=== PATIENT | female | born 1950 | race Caucasian/White ===

== ENCOUNTER 2016-11-28 18:58 | Emergency (ER) | payer MEDICARE, OTHER ==
[~2016-11-28] VITALS: Ht 157.5 cm; Wt 62.0 kg
[~2016-11-28 18:58] MED LIST: ASPI81TA81 PO; CREON12 PO; DOCU1CAP39 PO; DRIS50002 PO; HYDR-3516 PO; LACTCHW3 CHEW; LEVA500T PO; LEVO.1 PO; LORA-392 PO; NOVO7030P2 SQ; PANT40TA3 PO; POLY17S PO
[2016-11-28 19:02] VITALS: BP 173/93; PULSE 82; RESP 14; TEMP 98.1; O2SAT 95
[2016-11-28] MEDS ORDERED: SODIUM CHLOR 0.9% 1000 ML INJ 1,000 ML IV SCH (19:25)
[2016-11-28] MEDS ORDERED: ONDANSETRON HCL 4 MG/2 ML VIAL IVP ONE (19:30)
[2016-11-28] MEDS ORDERED: HYDROmorphone HCL PF 1 MG/ML VIAL IVS ONE (19:30)
[2016-11-28] MEDS ORDERED: METF1000 PO (19:37)
[2016-11-28] MEDS ORDERED: TRAM50TA PO (19:37)
[2016-11-28] MEDS ORDERED: ALPR0.5T3 PO (19:37)
[2016-11-28] MEDS ORDERED: DIATRIZOATE MEGLUM/DIATRIZOATE SOD 9 ML CUP ONE (19:49)
--- NOTE | 2016-11-28 19:57 | PD ---
HPI Chief Complaint: Abdominal Pain Time Seen by Provider: 19:51 Travel History International Travel<30 days: No Contact w/Intl Traveler<30days: No Traveled to known affect area: No History of Present Illness HPI 66-year-old female that presents to the ED for evaluation of abdominal pain here for CT scan. Per patient she was told by Dr. Vasquez to come here for evaluation. Patient has a history of pancreatic cancer and had to have chemotherapy as well as Whipple procedure. Ever since having the Whipple procedure she's been having severe abdominal pain which her medications and symptoms be helping with her symptoms. Patient currently taking tramadol. Patient went to see her doctor today who recommended that she comes here to get evaluated. She comes here with paperwork stating that she is to get a CT with contrast as well as oral contrast. Per patient she does have blood work recently as well. She denies any recent radiation or chemotherapy. She denies any urinary symptoms. Per patient he feels like a pressure below the umbilicus. No radiation. Denies any new injury. No fevers chills or sweats. No nausea or vomiting. Allergy to Novocain. Denies any SOB or chest pain. Patient is 7 out of 10. States having diarrhea but this has been ongoing. PFSH Past Medical History Hx Anticoagulant Therapy: Yes (ASA) Asthma: No Blood Disorders: No Anxiety: Yes Depression: Yes Heart Rhythm Problems: No Cancer: Yes (pancreatic) Cardiac Catheterization: Yes Cardiovascular Problems: Yes (STENTS X 2) High Cholesterol: Yes Chemotherapy: Yes Chest Pain: Yes Congestive Heart Failure: No COPD: No Cerebrovascular Accident: No Diabetes: Yes Patient Takes Glucophage: Yes Diminished Hearing: No Endocrine: Yes (DIABETES) GERD: Yes Genitourinary: Yes Hepatitis: No Hiatal Hernia: No Hypertension: Yes Immune Disorder: No Musculoskeletal: No Neurologic: No Psychiatric: Yes Reproductive: No Respiratory: No Myocardial Infarction: Yes Radiation Therapy: No Sleep Apnea: No Thyroid Disease: Yes Ulcer: Yes : 1 Para: 1 Past Surgical History Abdominal Surgery: No AICD: No Cardiac Surgery: No Coronary Artery Bypass Graft: No Coronary Stent: Yes (X 2) Ear Surgery: No Endocrine Surgery: No Eye Surgery: No Gynecologic Surgery: Yes (HYSTERECTOMY-PARTIAL) Hysterectomy: Yes (PARTIAL) Joint Replacement: No Oral Surgery: No Pacemaker: No Thoracic Surgery: No Other Surgery: Yes (BILAT BREAST REDUCTION, TUMMY TUCK, RAVENSWOOD SURGERY-) Family History Family Myocardial Infarction: Yes Social History Alcohol Use: No Tobacco Use: Yes Substance Use: Yes (MARIJUANA ) Allergies-Medications (Allergen,Severity, Reaction): Coded Allergies: Novocain (Verified Allergy, Severe, 11/28/16) Reported Meds & Prescriptions Reported Meds & Active Scripts Active Polyethylene Glycol 3350 Powder (Polyethylene Glycol) 17 Gm Pow 17 Gm PO DAILY 14 Days Pantoprazole (Pantoprazole Sodium) 40 Mg Tab 40 Mg PO DAILY 30 Days Levaquin (Levofloxacin) 500 Mg Tab 500 Mg PO DAILY 3 Days Novolin 70-30 Inj (Insulin Human Isoph/Insulin Regular) 1,000 Unit/10 Ml Vial 3 Units SQ BID@ 30 Days Hydrocodone-Acetaminophen 5-325 mg Tab 1 Tab PO Q8HR PRN Dok (Docusate Sodium) 100 Mg Cap 100 Mg PO TID 30 Days Ativan (Lorazepam) 0.5 Mg Tab 0.5 Mg PO Q8H PRN Lactinex (Lactobacillus Acidophilus) 1 Chew 1 Tab CHEW DAILY Reported Tramadol (Tramadol HCl) 50 Mg Tab 50 Mg PO Q6H PRN Metformin (Metformin HCl) 1,000 Mg Tab 1,000 Mg PO BIDPC With meals Alprazolam 0.5 Mg Tab 0.5 Mg PO Q6H PRN Drisdol (Ergocalciferol) 50,000 Unit Cap 50,000 Units PO 2 X WEEKLY Creon (Amylase/Lipase/Protease) 12,000-38,000-60,000 Units Cap 5 Cap PO TIDPC Aspir-81 (Aspirin) 81 Mg Tabdr 81 Mg PO DAILY Synthroid (Levothyroxine Sodium) 100 Mcg Tab 100 Mcg PO DAILY Review of Systems Except as stated in HPI: all other systems reviewed are Neg Physical Exam Narrative GENERAL: SKIN: Warm and dry. HEAD: Atraumatic. Normocephalic. EYES: Pupils equal and round. No scleral icterus. No injection or drainage. ENT: No nasal bleeding or discharge. Mucous membranes pink and moist. Tongue is midline. No Uvula deviation. NECK: Trachea midline. No JVD. CARDIOVASCULAR: Regular rate and rhythm. No murmurs, S3, S4. RESPIRATORY: No accessory muscle use. Clear to auscultation. Breath sounds equal bilaterally. GASTROINTESTINAL: Abdomen soft, patient has tenderness to palpation on the lower abdomen., nondistended. Hepatic and splenic margins not palpable. MUSCULOSKELETAL: Extremities without clubbing, cyanosis, or edema. No obvious deformities. Full range of motion of the upper and lower extremities bilaterally. 2+ pulses bilaterally. NEUROLOGICAL: Awake and alert. No obvious cranial nerve deficits. Motor grossly within normal limits. Five out of 5 muscle strength in the arms and legs. Normal speech. PSYCHIATRIC: Appropriate mood and affect; insight and judgment normal. Data Data Last Documented VS Vital Signs Date Time Temp Pulse Resp B/P Pulse Ox O2 Delivery O2 Flow Rate FiO2 11/28/16 19:26 18 11/28/16 19:02 98.1 82 173/93 95 Room Air Orders Iv Access Insert/Monitor (11/28/16 19:25) Ecg Monitoring (11/28/16 19:25) Oximetry (11/28/16 19:25) Ondansetron Inj (Zofran Inj) (11/28/16 19:30) Sodium Chlor 0.9% 1000 Ml Inj (Ns 1000 M (11/28/16 19:25) Hydromorphone Pf Inj (Dilaudid Pf Inj) (11/28/16 19:30) Ct Abd/Pel W Iv Contrast(Rout) (11/28/16 19:31) Oral Contrast - Adult (11/28/16 19:43) Lorazepam Inj (Ativan Inj) (11/28/16 20:00) Diatrizoate Liq ( Gastrolina Liq) (11/28/16 19:49) MDM Medical Decision Making Medical Screen Exam Complete: Yes Emergency Medical Condition: Yes Medical Record Reviewed: Yes Differential Diagnosis Acute on chronic pain versus chronic pain versus obstruction versus metastasis versus gastroenteritis versus acute abdomen Narrative Course 66-year-old female that presents to the ED for evaluation of CT scan. Patient was properly examined and was found to have signs and symptoms consistent appears to be abdominal pain. Per note from Dr. Vasquez his concern for obstruction and wants CT with contrast to evaluate. Patient does have labwork yesterday. Creatinine was within normal limits. Patient able to tolerate CT. Patient was started on IV. Patient was given IV pain medications including Dilaudid, Zofran and Ativan to help with her anxiety. Unfortunately CT was not finished at the writing of this note. Case signed out to night provider after patient was moved to a different room pending results and treatment. Misael Mckeon Nov 28, 2016 19:56
[2016-11-28] MEDS ORDERED: LORazepam 2 MG/ML VIAL IV PUSH ONE (20:00)
[2016-11-28] MEDS ORDERED: IOHEXOL 350 MG/ML 10 ML VIAL (for RAD DIAG) IV ONE (21:01)
--- NOTE | 2016-11-28 21:20 | RADRPT ---
EXAM DATE/TIME: 11/28/2016 21:06 [facility] COMPARISON: No previous studies available for comparison. INDICATIONS : Abdominal pain. IV CONTRAST: 94 cc Omnipaque 350 (iohexol) IV ORAL CONTRAST: Prescribed oral contrast ingested. RADIATION DOSE: 5.53 CTDIvol (mGy) MEDICAL HISTORY : Gastroesophageal reflux disease. Hypertension. Carcinoma, pancreas. SURGICAL HISTORY : Whipple procedure 09/19/16 ENCOUNTER: Initial ACUITY: 1 day PAIN SCALE: 7/10 LOCATION: Bilateral upper quadrant TECHNIQUE: Volumetric scanning of the abdomen and pelvis was performed. Using automated exposure control and ad justment of the mA and/or kV according to patient size, radiation dose was kept as low as reasonably achievable to obtain optimal diagnostic quality images. FINDINGS: Lung bases are clear. Diffuse fatty liver. Spleen, adrenals, kidneys unremarkable. Pancreas is atroph ic. Multiple surgical clips present around the distal stomach. There is diffuse mild anasarca. Mild c onstipation. There is mild mural thickening of the left colon which may indicate a mild colitis. CONCLUSION: 1. Mild mural thickening of the left colon most characteristic of a mild colitis. There is also diffu se mild anasarca. Postsurgical changes noted in the right upper quadrant. There is pancreatic atrophi c change. Diffuse fatty liver. Wesley Armendariz MD on November 28, 2016 at 21:15 Board Certified Radiologist. This report was verified electronically.
[2016-11-28] MEDS ORDERED: HYDR-3533 PO (21:51)
--- NOTE | 2016-11-28 21:56 | PD ---
Physical Exam Date Seen by Provider: Nov 28, 2016 Time Seen by Provider: 19:00 Narrative I was asked to see this patient by Aden Mckeon PA-C, as we were waiting for CT results. Patient has a history of pancreatic cancer and has had some loose stools and lower abdominal pain over the last several days. Dr. Vasquez is her oncologist. CT scan shows mild colitis, but no other acute findings. Data Data Last Documented VS Vital Signs Date Time Temp Pulse Resp B/P Pulse Ox O2 Delivery O2 Flow Rate FiO2 11/28/16 19:26 18 11/28/16 19:02 98.1 82 173/93 95 Room Air Orders Iv Access Insert/Monitor (11/28/16 19:25) Ecg Monitoring (11/28/16 19:25) Oximetry (11/28/16 19:25) Ondansetron Inj (Zofran Inj) (11/28/16 19:30) Sodium Chlor 0.9% 1000 Ml Inj (Ns 1000 M (11/28/16 19:25) Hydromorphone Pf Inj (Dilaudid Pf Inj) (11/28/16 19:30) Ct Abd/Pel W Iv Contrast(Rout) (11/28/16 19:31) Oral Contrast - Adult (11/28/16 19:43) Lorazepam Inj (Ativan Inj) (11/28/16 20:00) Diatrizoate Liq ( Gastroview Liq) (11/28/16 19:49) Iohexol 350 Inj (Omnipaque 350 Inj) (11/28/16 21:01) MDM Medical Record Reviewed: Yes Supervised Visit with MITCHEL: Yes Differential Diagnosis Abdominal pain. Metastatic disease. Bowel obstruction. Colitis. Narrative Course CT scan results are reviewed. Call was placed to Dr. Vasquez per his request. Call returned by Dr. Soni the oncologist on-call at this time. The patient was discussed and felt to be stable to be discharged home. Patient is given a prescription for Lortab 5/325 one every 6 hours when necessary abdominal pain. #20. Patient is to rest and push fluids and increase diet as discussed. Patient should call Dr. Vasquez's office symptoms do not continue to improve or worsen. Patient cannot return to emergency Department with worsening symptoms as needed. The patient should follow-up with Dr. Vasquez next week. Diagnosis Primary Impression: Colitis Referrals: Isael Vasquez MD Patient Instructions: General Instructions Additional Instruction: Call returned by Dr. Soni the oncologist on-call at this time. The patient was discussed and felt to be stable to be discharged home. Patient is given a prescription for Lortab 5/325 one every 6 hours when necessary abdominal pain. #20. Patient is to rest and push fluids and increase diet as discussed. Patient should call Dr. Vasquez's office symptoms do not continue to improve or worsen. Patient cannot return to emergency Department with worsening symptoms as needed. The patient should follow-up with Dr. Vasquez next week. Med/Other Pt SpecificInfo: Prescription(s) given Scripts Hydrocodone-Acetaminophen (Lortab)5-325 Mg Tab1 Tab PO Q6H PRN (PAIN) #20 TAB Ref 0 Prov:Nilesh Joshi MD 11/28/16 Disposition: 01 DISCHARGE HOME Condition: Stable Remigio Mead Nov 28, 2016 21:56
[2016-11-28 23:12] VITALS: BP 175/76
== END 2016-11-28 23:14 | disposition home or self-care (01) ==
LOC: NETRI 18:58
DX: K52.9 Noninfective gastroenteritis and colitis, unspecified (principal); Z85.07 Personal history of malignant neoplasm of pancreas; Z72.0 Tobacco use
CPT/HCPCS: 74177; 96374; 96375; 99284; J1170; J2060; J2405; J7030; Q9963; Q9967; 99212; G0463

== ENCOUNTER → 2017-01-01 | Day surgery (SDC) | payer MEDICARE, OTHER ==
[~2017-01-01] MED LIST changes: +ALPR.25 PO; +ALPR0.5T3 PO; +BUPIVACAINE/EPINEPHRINE 0.5% PF 30 ML VIAL ONE; +DILA2TAB2 PO; +HYDR-3533 PO; +LACTATED RINGER'S 1000 ML INJ 1,000 ML ONE; +LIDOCAINE 1%/EPINEPHrine 1:100,000 SOLN 30 ML VIAL ONE; +METF1000 PO; +MIDAZOLAM HCL 2 MG/2 ML VIAL ONE; +MORP1TAB25 PO; +ONDANSETRON HCL 4 MG/2 ML VIAL IV PUSH ONE; +PROPOFOL 200 MG/20 ML AMP IV ONE; +SENN1TAB PO; +TRAM50TA PO
--- NOTE | 2017-01-01 16:34 | TN ---
cc: WESLEY CONTEH,KOBY Meadows MD DATE OF SURGERY 01/01/2017 PREOPERATIVE DIAGNOSIS 1. History of pancreatic cancer. 2. Breast mass 7 o'clock position left breast. POSTOPERATIVE DIAGNOSIS 1. History of pancreatic cancer. 2. Breast mass 7 o'clock position left breast. PROCEDURE Left breast lumpectomy 7 o'clock position. ANESTHESIA TIVA. SURGEON Dr. Rex Conteh INDICATIONS The patient is a pleasant 66-year-old female who had undergone treatment for pancreatic cancer by Dr. Vasquze. The patient noted a left breast mass. Plans were made for excision. PROCEDURE IN DETAIL The patient was taken to operating room placed on the OR table After prepping and draping with Betadine. After anesthesia, a time out is done. We make a curvilinear incision in the nipple-areolar complex in an old scar, dissect down out medially to this palpable mass which is about 1 centimeter in size. It is grasped with an Allis and retracted circumferentially. It has the appearance of appearing to be a fibroadenoma. Another thickened fibrous mass-like piece of tissue was removed from the inferior margin and marked as such. We did sergei the original specimen with a suture at the 12 o'clock position which was short and a long stitch placed laterally. It was passed off the field. We then irrigate. Hemostasis is assured. We then close the two layers with a 3-0 Vicryl and a 4-0 Vicryl and Steri-Strips. The patient tolerated the procedure well, had no immediate postop complications. Wesley Conteh MD JADELA/ /3:10 PM /4:23 PM
== END | disposition home or self-care (01) ==
LOC: ESDC 12:22
PROVIDERS: ATTEND Surgery
DX: N63 Unspecified lump in breast (principal); Z85.07 Personal history of malignant neoplasm of pancreas; E11.9 Type 2 diabetes mellitus without complications; Z79.4 Long term (current) use of insulin
CPT/HCPCS: 00400; 19120; 82948; 88307; J2250; J2405; J3010; J7120; 88305; 88311

== ENCOUNTER 2017-04-23 12:04 | Inpatient (IN) | payer MEDICARE, OTHER ==
[~2017-04-23] VITALS: Ht 157.5 cm; Wt 59.0 kg
[~2017-04-23 12:04] MED LIST changes: -ALPR.25 PO; -BUPIVACAINE/EPINEPHRINE 0.5% PF 30 ML VIAL ONE; -DILA2TAB2 PO; -LACTATED RINGER'S 1000 ML INJ 1,000 ML ONE; -LIDOCAINE 1%/EPINEPHrine 1:100,000 SOLN 30 ML VIAL ONE; -MIDAZOLAM HCL 2 MG/2 ML VIAL ONE; -MORP1TAB25 PO; -ONDANSETRON HCL 4 MG/2 ML VIAL IV PUSH ONE; -PROPOFOL 200 MG/20 ML AMP IV ONE; -SENN1TAB PO
[2017-04-23 12:06] VITALS: BP 183/95; PULSE 105; RESP 18; TEMP 98.5; O2SAT 97
--- NOTE | 2017-04-23 12:18 | PD ---
Physical Exam Time Seen by Provider: 12:16 Narrative 66yo F sent by Dr. Vasquez for pancreatic ca that has metastasized to the liver. Dr. Vasquez wants to be called. Patient c/o abd pain, nausea, diarrhea for past few days. Denies fever. Currently on chemo therapy. Patient seen in triage. VS reviewed. Patient awaiting bed placement. Data Data Last Documented VS Vital Signs Date Time Temp Pulse Resp B/P Pulse Ox O2 Delivery O2 Flow Rate FiO2 04/23/17 12:06 98.5 105 18 183/95 97 MDM Supervised Visit with MITCHEL: Rocio Aguilar Apr 23, 2017 12:18
[2017-04-23] MEDS ORDERED: SODIUM CHLOR 0.9% 1000 ML INJ 1,000 ML IV SCH (12:37)
[2017-04-23] MEDS ORDERED: SODIUM CHLOR 0.9% 1000 ML INJ 1,000 ML IV ONE (12:45)
[2017-04-23] MEDS ORDERED: SODIUM CHLORIDE 0.9% FLUSH 10 ML FLUSH IV FLUSH PRN ×2 (12:45→17:15)
[2017-04-23] MEDS ORDERED: HYDROmorphone HCL PF 1 MG/ML VIAL IVS ONE (12:45)
[2017-04-23] MEDS ORDERED: ONDANSETRON HCL 4 MG/2 ML VIAL IVP ONE (12:45)
[2017-04-23] MEDS ORDERED: FAMOTIDINE 20 MG/2 ML VIAL IV PUSH ONE (12:45)
[2017-04-23 12:50] VITALS: BP 185/93; PULSE 90; RESP 15; TEMP 99; O2SAT 95
--- NOTE | 2017-04-23 13:26 | PD ---
HPI Chief Complaint: Abdominal Pain Time Seen by Provider: 12:30 Travel History International Travel<30 days: No Contact w/Intl Traveler<30days: No Traveled to known affect area: No History of Present Illness HPI Patient is an unfortunate 66-year-old female who has locally advanced pancreatic cancer. Patient had undergone Whipple's procedure in September 11, 2016, she was found to have residual cancer with a 2.5 cm pancreatic poorly differentiated adenocarcinoma and 3 positive lymph nodes. Patient reports that her cancer had metastasized to her liver, reports that she is currently receiving chemotherapy treatment. Patient did receive chemotherapy treatments a few weeks ago, she is due for chemotherapy tomorrow. Patient reports that she has been having severe pain to her abdomen, that her pain is at baseline, is unchanged from her normal abdominal pain. That her pain medications are not helping her symptoms at this time. Patient is currently being treated by Dr. Orly Vasquez, her oncologist. Patient reports that for the past few days, she has been feeling nauseous, reports that she has not been able to keep any foods or fluids down. Patient reports that she has also been having diarrhea. Patient reports that she feels dehydrated and weak. Patient did call Dr. Vasquez today, was told to come to emergency room for evaluation. I did check to Dr. Vasquez upon arrival to the emergency room, Dr. Vasquez request that patient have lab work drawn including CT of the abdomen and pelvis IV contrast. Patient does have metastatic disease, there is considerations for hospise versus palliative care. Dr. Vasquez will see patient today in hospital after all the studies have been resulted PFS Past Medical History Hx Anticoagulant Therapy: Yes (ASA) Asthma: No Blood Disorders: No Anxiety: Yes Depression: Yes Heart Rhythm Problems: No Cancer: Yes (pancreatic) Cardiac Catheterization: Yes Cardiovascular Problems: Yes (STENTS X 2) High Cholesterol: Yes Chemotherapy: Yes Chest Pain: Yes Congestive Heart Failure: No COPD: No Cerebrovascular Accident: No Diabetes: Yes Diminished Hearing: No Endocrine: Yes (DIABETES) GERD: Yes Genitourinary: Yes Hepatitis: No Hiatal Hernia: No Hypertension: Yes Immune Disorder: No Musculoskeletal: No Neurologic: No Psychiatric: Yes Reproductive: No Respiratory: No Myocardial Infarction: Yes Radiation Therapy: No Sleep Apnea: No Thyroid Disease: Yes Ulcer: Yes : 1 Para: 1 Past Surgical History Abdominal Surgery: No AICD: No Cardiac Surgery: No Coronary Artery Bypass Graft: No Coronary Stent: Yes (X 2) Ear Surgery: No Endocrine Surgery: No Eye Surgery: No Gynecologic Surgery: Yes (HYSTERECTOMY-PARTIAL) Hysterectomy: Yes (PARTIAL) Joint Replacement: No Oral Surgery: No Pacemaker: No Thoracic Surgery: No Other Surgery: Yes (BILAT BREAST REDUCTION, TUMMY TUCK, WHIPPLE SURGERY-) Social History Alcohol Use: No Tobacco Use: Yes Substance Use: Yes (MARIJUANA ) Allergies-Medications (Allergen,Severity, Reaction): Coded Allergies: Novocain (Verified Allergy, Severe, 04/23/17) Reported Meds & Prescriptions Reported Meds & Active Scripts Active Novolin 70-30 Inj (Insulin Human Isoph/Insulin Regular) 1,000 Unit/10 Ml Vial 3 Units SQ BID@ 30 Days Hydrocodone-Acetaminophen 5-325 mg Tab 1 Tab PO Q8HR PRN Dok (Docusate Sodium) 100 Mg Cap 100 Mg PO TID 30 Days Reported Morphine ER (Morphine Sulfate) 30 Mg Tab 30 Mg PO Q8H Creon (Amylase/Lipase/Protease) 12,000-38,000-60,000 Units Cap 5 Cap PO TIDPC Aspir-81 (Aspirin) 81 Mg Tabdr 81 Mg PO DAILY Synthroid (Levothyroxine Sodium) 100 Mcg Tab 100 Mcg PO DAILY Review of Systems General / Constitutional: No: Fever Eyes: No: Visual changes HENT: No: Headaches Cardiovascular: No: Chest Pain or Discomfort Respiratory: No: Shortness of Breath Gastrointestinal: Positive: Nausea, Diarrhea, Abdominal Pain Genitourinary: No: Dysuria Musculoskeletal: No: Pain Skin: No Rash Neurologic: No: Weakness Psychiatric: No: Depression Endocrine: No: Polydipsia Hematologic/Lymphatic: No: Easy Bruising Physical Exam Narrative GENERAL: Moderate distress SKIN: Focused skin assessment warm/dry. HEAD: Atraumatic. Normocephalic. EYES: Pupils equal and round. No scleral icterus. No injection or drainage. ENT: No nasal bleeding or discharge. Mucous membranes pink and moist. NECK: Trachea midline. No JVD. CARDIOVASCULAR: Regular rate and rhythm. No murmur appreciated. RESPIRATORY: No accessory muscle use. Clear to auscultation. Breath sounds equal bilaterally. GASTROINTESTINAL: Abdomen soft, patient with increased tenderness in the upper abdomen MUSCULOSKELETAL: No obvious deformities. No clubbing. No cyanosis. No edema. NEUROLOGICAL: Awake and alert. No obvious cranial nerve deficits. Motor grossly within normal limits. Normal speech. PSYCHIATRIC: Appropriate mood and affect; insight and judgment normal. Data Data Last Documented VS Vital Signs Date Time Temp Pulse Resp B/P Pulse Ox O2 Delivery O2 Flow Rate FiO2 04/23/17 13:43 90 15 162/96 98 Room Air 04/23/17 12:50 99.0 Orders Complete Blood Count With Diff (04/23/17 12:37) Comprehensive Metabolic Panel (04/23/17 12:37) Prothrombin Time / Inr (Pt) (04/23/17 12:37) Act Partial Throm Time (Ptt) (04/23/17 12:37) Urinalysis - C+S If Indicated (04/23/17 12:37) Iv Access Insert/Monitor (04/23/17 12:37) Ecg Monitoring (04/23/17 12:37) Oximetry (04/23/17 12:37) Ondansetron Inj (Zofran Inj) (04/23/17 12:45) Sodium Chlor 0.9% 1000 Ml Inj (Ns 1000 M (04/23/17 12:37) Sodium Chloride 0.9% Flush (Ns Flush) (04/23/17 12:45) Famotidine Inj (Pepcid Inj) (04/23/17 12:45) Hydromorphone Pf Inj (Dilaudid Pf Inj) (04/23/17 12:45) Sodium Chlor 0.9% 1000 Ml Inj (Ns 1000 M (04/23/17 12:45) Ct Abd/Pel W Iv Contrast(Rout) (04/23/17 12:42) Consult Medical Oncology (04/23/17 ) (Hub Use Only)Inp Phy Cons/Ref (04/23/17 ) Iohexol 350 Inj (Omnipaque 350 Inj) (04/23/17 15:15) Admit Order (Ed Use Only) (04/23/17 16:23) Labs Laboratory Tests Test 04/23/17 04/23/17 13:00 14:45 White Blood Count 10.6 TH/MM3 Red Blood Count 3.81 MIL/MM3 Hemoglobin 10.2 GM/DL Hematocrit 31.6 % Mean Corpuscular Volume 83.1 FL Mean Corpuscular Hemoglobin 26.9 PG Mean Corpuscular Hemoglobin 32.4 % Concent Red Cell Distribution Width 15.2 % Platelet Count 434 TH/MM3 Mean Platelet Volume 8.0 FL Neutrophils (%) (Auto) 84.3 % Lymphocytes (%) (Auto) 11.8 % Monocytes (%) (Auto) 3.0 % Eosinophils (%) (Auto) 0.1 % Basophils (%) (Auto) 0.8 % Neutrophils # (Auto) 9.0 TH/MM3 Lymphocytes # (Auto) 1.3 TH/MM3 Monocytes # (Auto) 0.3 TH/MM3 Eosinophils # (Auto) 0.0 TH/MM3 Basophils # (Auto) 0.1 TH/MM3 CBC Comment DIFF FINAL Differential Comment Prothrombin Time 12.1 SEC Prothromb Time International 1.1 RATIO Ratio Activated Partial 26.6 SEC Thromboplast Time Sodium Level 129 MEQ/L Potassium Level 3.9 MEQ/L Chloride Level 91 MEQ/L Carbon Dioxide Level 27.9 MEQ/L Anion Gap 10 MEQ/L Blood Urea Nitrogen 6 MG/DL Creatinine 0.51 MG/DL Estimat Glomerular Filtration 120 ML/MIN Rate Random Glucose 302 MG/DL Calcium Level 8.5 MG/DL Total Bilirubin 0.8 MG/DL Aspartate Amino Transf 61 U/L (AST/SGOT) Alanine Aminotransferase 49 U/L (ALT/SGPT) Alkaline Phosphatase 137 U/L Total Protein 6.7 GM/DL Albumin 2.8 GM/DL Urine Color LIGHT-YELLOW Urine Turbidity CLEAR Urine pH 6.0 Urine Specific [place] 1.006 Urine Protein NEG mg/dL Urine Glucose (UA) 1000 mg/dL Urine Ketones 40 mg/dL Urine Occult Blood NEG Urine Nitrite NEG Urine Bilirubin NEG Urine Urobilinogen LESS THAN 2.0 MG/DL Urine Leukocyte Esterase NEG Urine RBC LESS THAN 1 /hpf Urine WBC 1 /hpf Urine Squamous Epithelial 4 /hpf Cells Urine Mucus FEW /lpf Microscopic Urinalysis Comment CULT NOT INDICATED MDM Medical Decision Making Medical Screen Exam Complete: Yes Emergency Medical Condition: Yes Interpretation(s) Vital Signs Date Time Temp Pulse Resp B/P Pulse Ox O2 Delivery O2 Flow Rate FiO2 04/23/17 12:06 98.5 105 18 183/95 97 Differential Diagnosis Chronic pain from pancreatic cancer, electrolyte abnormality, gastroenteritis Narrative Course Patient is a 66-year-old female who presents to emergency room for evaluation of abdominal pain with nausea and diarrhea. Patient does have history of pancreatic cancer, reports that her cancer has metastasized to the liver. Reports that her pain is at baseline but reports intractable nausea and diarrhea. Reports that she feels dehydrated, was told to come to the emergency room for evaluation as per Dr. Vasquez. I did review case with Dr. Vasquez, Dr. Vasquez request CT of the abdomen and pelvis with IV contrast, there is consideration for hospice versus palliative care, patient is well-known to Dr. Vasquez, after studies, Dr. Vasquez talk to patient about her options. Dr. Vasquez request that patient be managed to the hospital under medicine service for pain treatment as well as for IV hydration. Laboratory Tests Test 04/23/17 04/23/17 13:00 14:45 White Blood Count 10.6 TH/MM3 (4.0-11.0) Red Blood Count 3.81 MIL/MM3 (4.00-5.30) Hemoglobin 10.2 GM/DL (11.6-15.3) Hematocrit 31.6 % (35.0-46.0) Mean Corpuscular Volume 83.1 FL (80.0-100.0) Mean Corpuscular Hemoglobin 26.9 PG (27.0-34.0) Mean Corpuscular Hemoglobin 32.4 % Concent (32.0-36.0) Red Cell Distribution Width 15.2 % (11.6-17.2) Platelet Count 434 TH/MM3 (150-450) Mean Platelet Volume 8.0 FL (7.0-11.0) Neutrophils (%) (Auto) 84.3 % (16.0-70.0) Lymphocytes (%) (Auto) 11.8 % (9.0-44.0) Monocytes (%) (Auto) 3.0 % (0.0-8.0) Eosinophils (%) (Auto) 0.1 % (0.0-4.0) Basophils (%) (Auto) 0.8 % (0.0-2.0) Neutrophils # (Auto) 9.0 TH/MM3 (1.8-7.7) Lymphocytes # (Auto) 1.3 TH/MM3 (1.0-4.8) Monocytes # (Auto) 0.3 TH/MM3 (0-0.9) Eosinophils # (Auto) 0.0 TH/MM3 (0-0.4) Basophils # (Auto) 0.1 TH/MM3 (0-0.2) CBC Comment DIFF FINAL Differential Comment Prothrombin Time 12.1 SEC (9.8-11.6) Prothromb Time International 1.1 RATIO Ratio Activated Partial 26.6 SEC Thromboplast Time (24.3-30.1) Sodium Level 129 MEQ/L (136-145) Potassium Level 3.9 MEQ/L (3.5-5.1) Chloride Level 91 MEQ/L (98-107) Carbon Dioxide Level 27.9 MEQ/L (21.0-32.0) Anion Gap 10 MEQ/L (5-15) Blood Urea Nitrogen 6 MG/DL (7-18) Creatinine 0.51 MG/DL (0.50-1.00) Estimat Glomerular Filtration 120 ML/MIN Rate (>89) Random Glucose 302 MG/DL (74-106) Calcium Level 8.5 MG/DL (8.5-10.1) Total Bilirubin 0.8 MG/DL (0.2-1.0) Aspartate Amino Transf 61 U/L (15-37) (AST/SGOT) Alanine Aminotransferase 49 U/L (10-53) (ALT/SGPT) Alkaline Phosphatase 137 U/L (45-117) Total Protein 6.7 GM/DL (6.4-8.2) Albumin 2.8 GM/DL (3.4-5.0) Urine Color LIGHT-YELLOW (YELLW/STRAW) Urine Turbidity CLEAR (CLEAR) Urine pH 6.0 (5.0-8.5) Urine Specific [place] 1.006 (1.002-1.035) Urine Protein NEG mg/dL (NEG-TRACE) Urine Glucose (UA) 1000 mg/dL (NEG) Urine Ketones 40 mg/dL (NEG) Urine Occult Blood NEG (NEG) Urine Nitrite NEG (NEG) Urine Bilirubin NEG (NEG) Urine Urobilinogen LESS THAN 2.0 MG/DL (LESS THAN 2.0) Urine Leukocyte Esterase NEG (NEG) Urine RBC LESS THAN 1 /hpf (0-3) Urine WBC 1 /hpf (0-5) Urine Squamous Epithelial 4 /hpf (0-5) Cells Urine Mucus FEW /lpf (OCC) Microscopic Urinalysis Comment CULT NOT INDICATED CT of the pelvis shows moderate amount of ascites which is new, diffuse apparent colonic wall thickening, a new 2.5 x 1.5 centimeter lesion in the left lobe the liver Plan to admit patient to medicine service as patient will be seen by her oncologist, patient will require pain control this time. Case reviewed with FP resident who accepts pt to service Diagnosis Primary Impression: Hyponatremia Additional Impressions: Abdominal pain Pancreatic cancer Admitting Information Admitting Physician Requests: Admit Dunia Harding DO Apr 23, 2017 13:26
[2017-04-23 13:32] LABS: BASOPHIL # 0.1 TH/MM3 (0-0.2); BASOPHIL % 0.8 % (0.0-2.0); EOSINOPHIL % 0.1 % (0.0-4.0); HEMATOCRIT 31.6 % (35.0-46.0); HEMO FLAGS DIFF FINAL; LYMPH % 11.8 % (9.0-44.0); LYMPHOCYTE # 1.3 TH/MM3 (1.0-4.8); MEAN CELL VOLUME 83.1 FL (80.0-100.0); MEAN CORPUSCULAR HEMOGLOBIN 26.9 PG (27.0-34.0); MEAN CORPUSCULAR HGB CONC 32.4 % (32.0-36.0); NEUT % 84.3 % (16.0-70.0); PLATELET COUNT 434 TH/MM3 (150-450); RED BLOOD COUNT 3.81 MIL/MM3 (4.00-5.30); RED CELL DISTRIBUTION WIDTH 15.2 % (11.6-17.2); WHITE BLOOD COUNT 10.6 TH/MM3 (4.0-11.0)
[2017-04-23 13:41] LABS: APTT (PATIENT) 26.6 SEC (24.3-30.1); INTERNATIONAL NORMALIZED RATIO 1.1 RATIO; PROTHROMBIN TIME - PATIENT 12.1 SEC (9.8-11.6)
[2017-04-23] MEDS ORDERED: MORP1TAB25 PO (13:41)
[2017-04-23 13:43] VITALS: BP 162/96; PULSE 90; RESP 15; O2SAT 98
[2017-04-23 13:51] LABS: ALKALINE PHOSPHATASE 137 U/L (45-117); TOTAL BILIRUBIN ADULT 0.8 MG/DL (0.2-1.0)
[2017-04-23 13:52] LABS: ALT (GPT) 49 U/L (10-53); ANION GAP 10 MEQ/L (5-15); AST (GOT) 61 U/L (15-37); BICARBONATE 27.9 MEQ/L (21.0-32.0); BLOOD UREA NITROGEN 6 MG/DL (7-18); CHLORIDE 91 MEQ/L (98-107); GLOMERULAR FILTRATION RATE 120 ML/MIN (>89); POTASSIUM 3.9 MEQ/L (3.5-5.1); SODIUM (NA) 129 MEQ/L (136-145)
[2017-04-23] MEDS ORDERED: IOHEXOL 350 MG/ML 10 ML VIAL (for RAD DIAG) IV ONE (15:15)
[2017-04-23 15:26] LABS: BLOOD, URINE NEG (NEG); COMMENT (UR) CULT NOT INDICATED; CULTURE IF INDICATED CULT NOT INDICATED; GLUCOSE,URINE 1000 mg/dL (NEG); KETONE, URINE 40 mg/dL (NEG); MUCUS URINE FEW /lpf (OCC); NITRITE,URINE NEG (NEG); SQUAMOUS EPITHELIAL CELL URINE 4 /hpf (0-5); URINE COLOR LIGHT-YELLOW (YELLW/STRAW)
--- NOTE | 2017-04-23 16:11 | RADRPT ---
EXAM DATE/TIME: 04/23/2017 15:10 [facility] COMPARISON: CT ABDOMEN & PELVIS W CONTRAST, November 28, 2016, 21:06. INDICATIONS : Patient complains of abdominal and back pain, history of pancreatic cancer. IV CONTRAST: 95 cc Omnipaque 350 (iohexol) IV ORAL CONTRAST: No oral contrast ingested. RADIATION DOSE: 9.96 CTDIvol (mGy) MEDICAL HISTORY : Hypertension. Cardiovascular disease Diabetes mellitus type 1.pancreatic cancer SURGICAL HISTORY : Hysterectomy. ENCOUNTER: Initial ACUITY: 1 day PAIN SCALE: 5/10 LOCATION: Bilateral upper quadrant TECHNIQUE: Volumetric scanning of the abdomen and pelvis was performed. Using automated exposure control and ad justment of the mA and/or kV according to patient size, radiation dose was kept as low as reasonably achievable to obtain optimal diagnostic quality images. FINDINGS: LOWER LUNGS: The visualized lower lungs are clear. LIVER: 2.5 x 1.5 cm lobulated hypodensity in the left lobe of the liver on image #26. Liver otherwise within normal limits. Status post cholecystectomy. Mild pneumobilia. SPLEEN: Normal size without lesion. PANCREAS: Diffusely atrophic. KIDNEYS: Normal in size and shape. There is no mass, stone or hydronephrosis. ADRENAL GLANDS: Within normal limits. VASCULAR: There is no aortic aneurysm. BOWEL/MESENTERY: Diffuse apparent colonic wall thickening likely related to diffuse nondistention. No bowel dilatation . No free air. Moderate amount of ascites in the upper abdomen. ABDOMINAL WALL: Within normal limits. RETROPERITONEUM: There is no lymphadenopathy. BLADDER: No wall thickening or mass. REPRODUCTIVE: Within normal limits. INGUINAL: There is no lymphadenopathy or hernia. MUSCULOSKELETAL: Degenerative findings lumbar spine. CONCLUSION: Moderate amount of ascites, new. Superficial soft tissue edema also noted. Diffuse apparent colonic wall thickening, likely related to incomplete distention of the colon as are as that are air-filled show no wall thickening. New 2.5 x 1.5 cm lesion in the left lobe of the liver, indeterminate. This finding is likely accessib le to CT-guided percutaneous needle biopsy. Akshat Mcdermott MD on April 23, 2017 at 15:54 Board Certified Radiologist. This report was verified electronically.
--- NOTE | 2017-04-23 16:32 | HHI.HP ---
[facility] Service Family Medicine Primary Care Physician Paul Reddy MD Admission Diagnosis Intractable abdominal pain Diagnoses: International Travel<30 Days: No Contact w/Intl Traveler<30days: No Known Affected Area: No History of Present Illness 66-year-old female with a history of locally advanced pancreatic cancer found February 2016. Known to Dr. Vasquez. From information obtained from Dr. Vasquez note in January 2017, patient has clinical T3 N1 M0. She received chemotherapy and the CA-19-9 fell to 107 and she had a normal PET scan. She had a Whipple procedure 08/2016 and was found to have residual cancer with a 2.5 cm pancreatic poorly differentiated adenocarcinoma and 3 positive lymph nodes. Her plan was to be treated with radiation therapy with oral xeloda following the surgery. However, she never recovered well enough to do this. She had problems with diabetes and needed to follow with an form stripper. The patient came in today because "she could not take the pain anymore." She says the last few days have been "hell." The pain is constant 10 out of 10 in the center of her belly, radiates to her back up and down. She is nauseous but is not vomiting. She has no appetite. She has both diarrhea and constipation. At the time of my interview, she received 1 mg of Dilaudid and her pain is relatively gone. The ED spoke with Dr. Vasquez and he plans to see the patient today. Review of Systems Constitutional: COMPLAINS OF: Weight loss (100 lb since last year), Chills, Change in appetite, DENIES: Fever Eyes: DENIES: Blurred vision, Diplopia Ears, nose, mouth, throat: DENIES: Vertigo, Running Nose Respiratory: DENIES: Cough, Shortness of breath Cardiovascular: DENIES: Chest pain, Palpitations Gastrointestinal: COMPLAINS OF: Abdominal pain, Constipation, Diarrhea, Nausea , DENIES: Vomiting Neurologic: COMPLAINS OF: Abnormal gait, DENIES: Headache Psychiatric: COMPLAINS OF: Anxiety, Confusion, Depression Past Family Social History Past Medical History [place] 2008 Hyperlipidemia Pancreatic cancer Past Surgical History Whipple procedure 2016 Bilateral breast reductions Bilateral carpal tunnel Bladder lift 3 Marbella locke Reported Medications Reported Meds & Active Scripts Active Humolog SSI Lantus 6 units in the morning. Hydrocodone-Acetaminophen 5-325 mg Tab 2 Tab PO q4-6 hr prn Dok (Docusate Sodium) 100 Mg Cap 100 Mg PO TID 30 Days Reported Morphine ER (Morphine Sulfate) 30 Mg Tab 30 Mg PO Q8H Creon (Amylase/Lipase/Protease) 12,000-38,000-60,000 Units Cap 5 Cap PO TIDPC Aspir-81 (Aspirin) 81 Mg Tabdr 81 Mg PO DAILY Synthroid (Levothyroxine Sodium) 100 Mcg Tab 100 Mcg PO DAILY Allergies: Coded Allergies: Novocain (Verified Allergy, Severe, 04/23/17) Active Ordered Medications Active Medications Alprazolam (Xanax) 0.25 mg TID PRN PO; Start 04/23/17 at 17:30; Status UNV Bisacodyl (Dulcolax Supp) 10 mg DAILY PRN RECTAL; Start 04/23/17 at 17:15; Status UNV Famotidine (Pepcid Inj) 20 mg ONCE ONCE IV PUSH Last administered on 04/23/17 12:54; Admin Dose 20 MG; Start 04/23/17 at 12:45; Stop 04/23/17 at 12:46; Status DC Heparin Sodium (Porcine) (Heparin Inj) 5,000 units Q12H SQ; Start 04/23/17 at 17: 15; Status UNV Hydromorphone HCl (Dilaudid Pf Inj) 0.5 mg Q3H PRN IV; Start 04/23/17 at 17:30; Status UNV Hydromorphone HCl (Dilaudid Pf Inj) 1 mg Q3H PRN IV; Start 04/23/17 at 17:30; Status UNV Hydromorphone HCl (Dilaudid Pf Inj) 1 mg Q3H PRN IV; Start 04/23/17 at 17:30; Status UNV Hydromorphone HCl 1 mg 1 mg ONCE ONCE IVS Last administered on 04/23/17 12:54; Admin Dose 1 MG; Start 04/23/17 at 12:45; Stop 04/23/17 at 12:46; Status DC Iohexol 95 ml 95 ml STK-MED ONCE IV Last administered on 04/23/17 15:15; Admin Dose 95 ML; Start 04/23/17 at 15:15; Stop 04/23/17 at 15:16; Status DC Lactulose (Lactulose Liq) 30 ml DAILY PRN PO; Start 04/23/17 at 17:15; Status UNV Magnesium Hydroxide (Milk Of Magnesia Liq) 30 ml Q12H PRN PO; Start 04/23/17 at 17:15; Status UNV Naloxone HCl (Narcan Inj) 0.4 mg UNSCH PRN IV; Start 04/23/17 at 17:15; Status UNV Naloxone HCl (Narcan Inj) 0.4 mg UNSCH PRN IV; Start 04/23/17 at 17:30; Status UNV Ondansetron HCl 4 mg 4 mg ONCE ONCE IVP Last administered on 04/23/17 12:54; Admin Dose 4 MG; Start 04/23/17 at 12:45; Stop 04/23/17 at 12:46; Status DC Senna/Docusate Sodium (Chayo-Colace) 1 tab BID PO; Start 04/23/17 at 21:00; Status UNV Sennosides (Senokot) 17.2 mg Q12H PRN PO; Start 04/23/17 at 17:15; Status UNV Sodium Chloride (NS 1000 ml Inj) 1,000 ml @ 100 mls/hr Q10H IV; Start 04/23/17 at 17:12; Status UNV Sodium Chloride (NS 1000 ml Inj) 1,000 ml @ 999 mls/hr BOLUS ONCE IV Last administered on 04/23/17 12:53; Admin Dose 999 MLS/HR; Start 04/23/17 at 12:45; Stop 04/23/17 at 13:45; Status DC Sodium Chloride (NS 1000 ml Inj) 1,000 ml @ 1,000 mls/hr Q1H IV Last administered on 04/23/17 12:53; Admin Dose 1,000 MLS/HR; Start 04/23/17 at 12:37 ; Stop 04/23/17 at 13:36; Status DC Sodium Chloride (NS Flush) 2 ml BID IV FLUSH; Start 04/23/17 at 21:00; Status UNV Sodium Chloride (NS Flush) 2 ml UNSCH PRN IV FLUSH; Start 04/23/17 at 12:45 Sodium Chloride (NS Flush) 2 ml UNSCH PRN IV FLUSH; Start 04/23/17 at 17:15; Status UNV Temazepam (Restoril) 7.5 mg HS PRN PO; Start 04/23/17 at 17:15; Status UNV Family History Mother: cancer unknown type Father: cad. no cancer Sister with cancer of unknown type Brother with pancreatic and stomach cancer Aunt with meningioma Social History Tobacco abuse on and off alcohol: none Physical Exam Vital Signs Vital Signs Date Time Temp Pulse Resp B/P Pulse Ox O2 Delivery O2 Flow Rate FiO2 04/23/17 13:43 90 15 162/96 98 Room Air 04/23/17 13:42 14 04/23/17 12:50 15 04/23/17 12:50 99.0 90 15 185/93 95 Room Air 04/23/17 12:06 98.5 105 18 183/95 97 Physical Exam GENERAL: This is a well-nourished and pleasant female. No acute distress. SKIN: Cool and dry. Port right upper chest without erythema. HEAD: Atraumatic. Normocephalic. No temporal or scalp tenderness. EYES: Pupils equal round and reactive. Extraocular motions intact. No scleral icterus. No injection or drainage. ENT: Nose without bleeding, purulent drainage or septal hematoma. Throat without erythema, tonsillar hypertrophy or exudate. Uvula midline. Airway patent. NECK: Trachea midline. No JVD or lymphadenopathy. Supple, nontender, no meningeal signs. CARDIOVASCULAR: Regular rate and rhythm. 2/6 systolic ejection murmur right sternal border RESPIRATORY: Clear to auscultation. Breath sounds equal bilaterally. No wheezes , rales, or rhonchi. GASTROINTESTINAL: Abdomen soft, mildly tender to palpation diffusely, nondistended. No guarding or rebound. MUSCULOSKELETAL: Extremities without clubbing, cyanosis, or edema. No joint tenderness, effusion, or edema noted. No calf tenderness. Negative Homans sign bilaterally. NEUROLOGICAL: Awake and alert. Cranial nerves II through XII intact. Motor and sensory grossly within normal limits. Five out of 5 muscle strength in all muscle groups. Normal speech. Laboratory Laboratory Tests Test 04/23/17 04/23/17 13:00 14:45 White Blood Count 10.6 Red Blood Count 3.81 Hemoglobin 10.2 Hematocrit 31.6 Mean Corpuscular Volume 83.1 Mean Corpuscular Hemoglobin 26.9 Mean Corpuscular Hemoglobin 32.4 Concent Red Cell Distribution Width 15.2 Platelet Count 434 Mean Platelet Volume 8.0 Neutrophils (%) (Auto) 84.3 Lymphocytes (%) (Auto) 11.8 Monocytes (%) (Auto) 3.0 Eosinophils (%) (Auto) 0.1 Basophils (%) (Auto) 0.8 Neutrophils # (Auto) 9.0 Lymphocytes # (Auto) 1.3 Monocytes # (Auto) 0.3 Eosinophils # (Auto) 0.0 Basophils # (Auto) 0.1 CBC Comment DIFF FINAL Differential Comment Prothrombin Time 12.1 Prothromb Time International 1.1 Ratio Activated Partial 26.6 Thromboplast Time Sodium Level 129 Potassium Level 3.9 Chloride Level 91 Carbon Dioxide Level 27.9 Anion Gap 10 Blood Urea Nitrogen 6 Creatinine 0.51 Estimat Glomerular Filtration 120 Rate Random Glucose 302 Calcium Level 8.5 Total Bilirubin 0.8 Aspartate Amino Transf 61 (AST/SGOT) Alanine Aminotransferase 49 (ALT/SGPT) Alkaline Phosphatase 137 Total Protein 6.7 Albumin 2.8 Urine Color LIGHT-YELLOW Urine Turbidity CLEAR Urine pH 6.0 Urine Specific [place] 1.006 Urine Protein NEG Urine Glucose (UA) 1000 Urine Ketones 40 Urine Occult Blood NEG Urine Nitrite NEG Urine Bilirubin NEG Urine Urobilinogen LESS THAN 2.0 Urine Leukocyte Esterase NEG Urine RBC LESS THAN 1 Urine WBC 1 Urine Squamous Epithelial 4 Cells Urine Mucus FEW Microscopic Urinalysis Comment CULT NOT INDICATED Result Diagram: 04/23/17 1300 04/23/17 1300 Imaging Last Impressions Abdomen/Pelvis CT 04/23/17 1242 Signed Impressions: Service Date/Time: , April 23, 2017 15:10 - CONCLUSION: Moderate amount of ascites, new. Superficial soft tissue edema also noted. Diffuse apparent colonic wall thickening, likely related to incomplete distention of the colon as areas that are air-filled show no wall thickening. New 2.5 x 1.5 cm lesion in the left lobe of the liver, indeterminate. This finding is likely accessible to CT-guided percutaneous needle biopsy. Akshat Mcdermott MD Assessment and Plan Assessment and Plan 66-year-old female with known pancreatic cancer presents with metastatic disease and intractable pain. Oncology, Dr. Vasquez consult. Likely appropriate for hospice; we will hold off on hospice/palliative consult until Dr. Vasquez sees the patient. Code Status DNR Problem List: (1) Pancreatic cancer Status: Acute Plan: Known pancreatic cancer, now with metastases to the liver Oncology consult, Dr. Vasquez Likely hospice appropriate. We will wait for oncology to see the patient, likely this evening. -Pain control: Continue home morphine ER 30 mg by mouth every 8 hours. Dilaudid 1 mg IV 2 hours when necessary 6-10. Dilaudid 1 mg breakthrough pain. Continue Creon 5 mg By mouth 3 times a day after meals Ativan 0.25 mg by mouth 3 times a day when necessary anxiety (2) Diabetes Status: Chronic Plan: Patient normally takes Humalog sliding scale insulin and 6 units of Lantus daily. Glucose on admission 302 Provide 6 units Levemir at night. Sliding scale insulin coverage Increase long-acting as appropriate. (3) Hyponatremia Status: Acute Plan: We'll start mild fluid hydration with normal saline. (4) Hypothyroid Status: Chronic Plan: Continue home medication (5) FEN/PPX Status: Acute Plan: Fluids: Normal saline at 100 mL's per hour Electrolytes: Monitor and replace as needed Nutrition: Regular diet Prophylaxis: Bilateral SCDs, heparin Physician Certification 2 Midnight Certification Type: Admission for Inpatient Services Order for Inpatient Services The services are ordered in accordance with Medicare regulations or non- Medicare payer requirements, as applicable. In the case of services not specified as inpatient-only, they are appropriately provided as inpatient services in accordance with the 2-midnight benchmark. Estimated LOS (days): 2 days is the estimated time the patient will need to remain in the hospital, assuming treatment plan goals are met and no additional complications. Post-Hospital Plan: Not yet determined Problem Qualifiers (1) Diabetes: Qualified Code: E11.8 - Type 2 diabetes mellitus with complication, with long- term current use of insulin Weston Crain MD R2 Apr 23, 2017 16:32
[2017-04-23] MEDS ORDERED: MAGNESIUM HYDROXIDE SUSP 30 ML CUP PO PRN (17:15)
[2017-04-23] MEDS ORDERED: SENNOSIDES 8.6 MG TAB PO PRN (17:15)
[2017-04-23] MEDS ORDERED: LACTULOSE SYRUP 20 GM/30 ML CUP PO PRN (17:15)
[2017-04-23] MEDS ORDERED: BISACODYL 10 MG SUPP RECTAL PRN (17:15)
[2017-04-23] MEDS ORDERED: NALOXONE HCL 0.4 MG/ML AMP IV PRN ×2 (17:15→17:30)
[2017-04-23] MEDS ORDERED: TEMAZEPAM 15 MG CAP PO PRN (17:15)
[2017-04-23] MEDS ORDERED: HYDROmorphone HCL PF 1 MG/ML VIAL IV PRN ×3 (17:30)
[2017-04-23] MEDS ORDERED: ALPRAZolam 0.25 MG TAB PO PRN (17:30)
[2017-04-23] MEDS ORDERED: GLUCAGON 1 MG/ML VIAL OTHER PRN (17:30)
[2017-04-23] MEDS ORDERED: DEXTROSE 50% IN WATER 50 ML VIAL(D50) IV PRN (17:30)
[2017-04-23 18:01] VITALS: BP 177/93
[2017-04-23 18:30] VITALS: BP 145/75; PULSE 91; RESP 18; TEMP 98.8; O2SAT 99
[2017-04-23] MEDS: LIPASE/PROTEASE/AMYLASE (12,000/38,000/60,000) CAP PO SCH ×2 (18:30→20:40)
[2017-04-23] MEDS: MORPHINE SULFATE 30 MG CONTROLLED RELEASE TAB PO SCH (19:16)
[2017-04-23] MEDS: HEPARIN SODIUM - SQ 10,000 UNITS/ML VIAL SQ SCH (19:16)
[2017-04-23] MEDS: SODIUM CHLOR 0.9% 1000 ML INJ 1,000 ML IV SCH (19:17)
[2017-04-23 20:00] VITALS: BP 157/79; PULSE 84; RESP 20; TEMP 98; O2SAT 96
[2017-04-23] MEDS: SODIUM CHLORIDE 0.9% FLUSH 10 ML FLUSH IV FLUSH SCH (20:40)
[2017-04-23] MEDS: DOCUSATE SODIUM 50 MG/SENNA 8.6 MG TAB PO SCH (20:40)
[2017-04-23] MEDS: INSULIN DETEMIR 100 UNITS/ML VIAL SQ SCH (20:44)
[2017-04-23] MEDS: INSULIN NovoLIN REGULAR SUPPLEMENTAL SCALE SQ SCH (20:48)
[2017-04-24] VITALS (8 sets, daily range): BP systolic 123–155; BP diastolic 69–87; PULSE 70–89; RESP 11–20; TEMP 96.5–98.4; O2SAT 96–100
[2017-04-24] MEDS: HYDROmorphone HCL 2 MG TAB PO PRN (00:56)
[2017-04-24] MEDS: MORPHINE SULFATE 30 MG CONTROLLED RELEASE TAB PO SCH ×3 (02:26→17:51)
[2017-04-24] MEDS: SODIUM CHLOR 0.9% 1000 ML INJ 1,000 ML IV SCH ×2 (04:00→10:19)
[2017-04-24 05:33] LABS: AUTOMATED NEUTROPHIL # 3.3 TH/MM3 (1.8-7.7); BASOPHIL # 0.1 TH/MM3 (0-0.2); BASOPHIL % 1.3 % (0.0-2.0); EOSINOPHIL # 0.1 TH/MM3 (0-0.4); EOSINOPHIL % 0.9 % (0.0-4.0); HEMATOCRIT 23.8 % (35.0-46.0); HEMO FLAGS DIFF FINAL; LYMPH % 38.9 % (9.0-44.0); LYMPHOCYTE # 2.4 TH/MM3 (1.0-4.8); MEAN CELL VOLUME 84.6 FL (80.0-100.0); MEAN CORPUSCULAR HEMOGLOBIN 26.5 PG (27.0-34.0); MEAN CORPUSCULAR HGB CONC 31.4 % (32.0-36.0); MONO % 4.8 % (0.0-8.0); NEUT % 54.1 % (16.0-70.0); PLATELET COUNT 294 TH/MM3 (150-450); RED BLOOD COUNT 2.82 MIL/MM3 (4.00-5.30); RED CELL DISTRIBUTION WIDTH 14.9 % (11.6-17.2); WHITE BLOOD COUNT 6.1 TH/MM3 (4.0-11.0)
[2017-04-24] MEDS: INSULIN NovoLIN REGULAR SUPPLEMENTAL SCALE SQ SCH ×4 (05:42→20:43)
[2017-04-24] MEDS: LEVOTHYROXINE SODIUM 100 MCG TAB PO SCH (05:43)
[2017-04-24] MEDS: HEPARIN SODIUM - SQ 10,000 UNITS/ML VIAL SQ SCH ×2 (05:43→17:53)
[2017-04-24 05:53] LABS: ALKALINE PHOSPHATASE 102 U/L (45-117); ALT (GPT) 30 U/L (10-53); ANION GAP 6 MEQ/L (5-15); AST (GOT) 25 U/L (15-37); BICARBONATE 33.5 MEQ/L (21.0-32.0); BLOOD UREA NITROGEN 7 MG/DL (7-18); CHLORIDE 99 MEQ/L (98-107); GLOMERULAR FILTRATION RATE 100 ML/MIN (>89); POTASSIUM 3.5 MEQ/L (3.5-5.1); SODIUM (NA) 138 MEQ/L (136-145); TOTAL BILIRUBIN ADULT 0.4 MG/DL (0.2-1.0)
--- NOTE | 2017-04-24 07:14 | HHI.FPPN ---
Subjective Remarks Margarita Chanel is a 66yo lady with known h/o locally advanced T3N1M0 pancreatic cancer diagnosed February [address] Vasquez. She has undergone chemotherapy and subsequent Whipple procedure in 08/2016. At that time, she was found to have residual cancer with a 2.5cm poorly differentiated adenocarcinoma and 3 positive lymph nodes. She never fully recovered after this. She has developed worsening abdominal pain, described as 10/10, located in mid abdomen and radiates to her back. + nausea, but no vomiting. For further details, please see resident H&P. This morning, she reports her pain is under great control with PO dilaudid. She reports no more chemotherapy and that she wants to live life to the fullest, whatever time she has left. ROS: Abd pain resolved/controlled. No nausea. Tolerating PO. No fevers, no chest pain, no SOB, no lower extremity edema. All other systems reviewed are negative. PMH/PSxH/SocHx/FamHx: Per resident H&P. Significant for: Pancreatic CA as above , s/p Whipple 08/2016. [place] 2008, hyperlipidemia. B breast reductions, B carpal tunnel release, Bladder lift x 3 and tummy tuck. Mother with cancer of unknown type. Brother with pancreatic and stomach cancer. No alcohol use. Objective Vitals Vital Signs Date Time Temp Pulse Resp B/P Pulse Ox O2 Delivery O2 Flow Rate FiO2 04/24/17 03:26 18 04/24/17 01:56 18 04/24/17 00:00 97.6 80 20 148/76 98 04/23/17 20:00 98.0 84 20 157/79 96 04/23/17 18:30 98.8 91 18 145/75 99 04/23/17 18:01 90 15 177/93 97 04/23/17 13:43 90 15 162/96 98 Room Air 04/23/17 13:42 14 04/23/17 12:50 15 04/23/17 12:50 99.0 90 15 185/93 95 Room Air 04/23/17 12:06 98.5 105 18 183/95 97 I/O 04/23/17 04/23/17 04/23/17 04/24/17 04/24/17 04/24/17 07:00 15:00 23:00 07:00 15:00 23:00 Intake Total 461 ml 1202 ml Output Total 450 ml 600 ml Balance 11 ml 602 ml Intake Oral 440 ml 480 ml IV Total 21 ml 722 ml Output Urine Total 450 ml 600 ml # Bowel Movements 0 0 Result Diagram: 04/24/17 0416 04/24/17415 Objective Remarks GENERAL: in NAD, no resp distress, nontoxic. Sitting comfortably in bed. Accompanied by friend. HEENT: NCAT, EOMI, no scleral icterus, no conjunctival injection. MMM. NECK: Supple, no meningeal signs. CV: RRR, S1 S2. 1/6 systolic murmur. CHEST/PULM: CTAB, no crackles, no wheezes ABD/GI: +BS, soft, nondistended. + Mild tenderness throughout. No rebound, no guarding. EXT: 2+ DP pulses. No calf tenderness, no edema. : No CVAT. NEURO: Awake, alert. Normal muscle tone. SKIN: No rashes, no jaundice. PSYCH: Mood and affect are appropriate. Speech fluent. A/P Assessment and Plan 66-year-old female with known pancreatic cancer presents with metastatic disease and intractable pain. Oncology, Dr. Vasquez consult. Likely appropriate for hospice; we will hold off on hospice/palliative consult until Dr. Vasquez sees the patient. Attending Attestation Patient seen, examined, and discussed with resident team. The patient has been seen and examined. The chart and all resident notes have been reviewed. I agree that inpatient care is appropriate and that a two midnight stay is expected for the reasons documented in the resident history and physical. I have discussed this with the resident and certify the resident s order for inpatient admission. Problem List: (1) Pancreatic cancer Status: Acute Plan: Known pancreatic cancer, now with metastases to the liver Oncology consult, Dr. Vasquez. Appreciate res. Likely hospice appropriate. Await hospice consultation. -Pain control: Continue home morphine ER 30 mg by mouth every 8 hours. Continue Creon 5 mg By mouth 3 times a day after meals Ativan 0.25 mg by mouth 3 times a day when necessary anxiety Patient now with good pain control with PO dilaudid PRN and morphine scheduled. IR has been consulted for possible celiac block; they are unable to perform this until Thursday if still needed. (2) Intractable abdominal pain Status: Resolved Plan: Improved with current pain regimen. See above plan. (3) Diabetes Status: Chronic Plan: Patient normally takes Humalog sliding scale insulin and 6 units of Lantus daily. Glucose on admission 302 Provide 6 units Levemir at night. Sliding scale insulin coverage Increase long-acting as appropriate (4) Hyponatremia Status: Resolved Plan: Likely secondary to dehydration. Resolved after IV hydration. (5) Hypothyroid Status: Chronic Plan: Continue home medication. Problem Qualifiers (1) Diabetes: Qualified Code: E11.8 - Type 2 diabetes mellitus with complication, with long- term current use of insulin Zoë Villatoro MD Apr 24, 2017 07:14 Zoë Villatoro MD Apr 24, 2017 07:14
--- NOTE | 2017-04-24 08:24 | MB ---
cc: MORANKOBY DATE OF CONSULTATION: 04/23/2017 REASON FOR CONSULTATION 1. Pancreatic cancer. 2. Uncontrolled pain. PATIENT PROFILE The patient is single, she has never . She has a daughter who lives in [facility]. The patient has lived in [place] since 2011. She is retired. 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 She has smoked a half pack of cigarettes per day. She has a male line server who lives with her. She does not drink alcohol. HISTORY OF PRESENT ILLNESS The patient is a 66-year-old female whose history dates back to September 2015 when she developed nausea, vomiting, dizziness and fatigue. In January 2016 she had a CAT scan the abdomen and pelvis showing a prominent pancreatic head measuring 3.7 cm. She had an elevated CA 19-9. She underwent an ultrasound-guided fine-needle aspiration biopsy of the head of the pancreas on 03/16/2016 which was nondiagnostic but clinically she appeared to have at T3,N0 tumor. She had a second needle biopsy of the pancreas in March 2016 identifying an adenocarcinoma and the final clinical stage was T3,N1. She saw Dr. Gerardo who is a surgeon specializing in laparoscopic Whipple procedures. The patient was initially not felt to be resectable and for this reason she was referred to me for neoadjuvant chemotherapy. She received Folfirinox and had radiographic resolution of the pancreatic mass. On 09/19/2016 she had a Whipple procedure performed by Dr. Gerardo at [facility] and she had involvement of lymph nodes. The plan was to treat her with radiation therapy with concomitant Xeloda or 5-FU. This never took place as she has always been sick. She has had problems with brittle diabetes. She was found to have a rising CA 19-9; 260 on 02/06/2017, and 1941 on 03/30/2017. She was felt to have recurrent pancreatic cancer and received Abraxane and gemcitabine on 04/03/2017 with the plan being to continue chemotherapy. Approximately a week ago she went to the [facility] Emergency Room because of pain. The pain was never well-controlled and she was discharged. She contacted our office this morning. She was in tears and the pain was unbearable. The pain has been persistent, involves the upper abdominal area, a little more on the left side than the right. I referred to [facility] emergency room. I felt that she needed to be admitted for evaluation and certainly for pain control. She was found to have a moderate amount of ascites which is new. She has a 2.5 cm hypodensity in the left lobe of the liver. There was diffuse apparent colonic wall thickening likely related to incomplete distention of the colon. The following laboratory studies have been done: On 04/23/2017 lipase is 34, alkaline phosphatase 137, ALT 49, AST 61, glucose 302, sodium 129, hemoglobin 10, white count 10,000, platelets 434,000. She has been given IV Dilaudid and for the first time in days she feels that her pain is better controlled. PAST SURGICAL HISTORY 1. Bilateral breast reductions. 2. Bilateral carpal tunnel surgery. 3. Bladder lift x3 for urinary incontinence. 4. Left breast biopsy in December 2016 showing benign tissue. 5. Whipple procedure 09/19/2016 for adenocarcinoma of the pancreas. Three lymph nodes were positive. PAST MEDICAL HISTORY 1. Chronic anxiety. 2. Recurrent pancreatic cancer. 3. Coronary artery disease with two stents placed in August 2014. 4. Diabetes, insulin dependent. 5. Myocardial infarction 2007. 6. Hyperlipidemia. 7. Hypertension. 8. Hypothyroidism. 9. Pancreatic insufficiency. MEDICATIONS Medications prior to admission: 1. Creon. 2. Aspirin 81 mg a day. 3. Hydrocodone/acetaminophen; she believes . 4. Insulin. 5. Levothyroxine. 6. MS Contin 30 mg p.o. q.12h. ALLERGIES NOVOCAIN. FAMILY HISTORY Noncontributory. REVIEW OF SYSTEMS No change in vision or hearing. Occasional palpitations. No shortness of breath. She has upper abdominal pain which has been going on for weeks and has worsened and is intolerable. Occasional constipation and diarrhea. No melena. No dysuria, frequency, hematuria. No vaginal bleeding. No bone pain. She has generalized moderate weakness. Her appetite is poor. PHYSICAL EXAMINATION GENERAL: Physical exam reveals a pleasant female. She states that she is now comfortable. She is eating. VITAL SIGNS: Blood pressure 140/70, respiratory rate 18, pulse 90 afebrile, 99% saturation. HEENT: Head is normocephalic. Sclera and conjunctiva are normal. Oropharynx unremarkable. NECK: No adenopathy. HEART: Regular rhythm. LUNGS: Clear. ABDOMEN: Soft. There is epigastric tenderness. There is no enlargement of the Liver or spleen. She has ascites on CAT scan but I cannot feel it on exam. EXTREMITIES: Trace edema. MUSCULOSKELETAL: No bone pain. NEUROLOGIC: No weakness. Cognition and affect normal. SKIN: Unremarkable. ASSESSMENT The patient is a 66-year-old female who has pancreatic cancer. She now appears to metastatic disease to the liver. I have little doubt that she has recurrent disease. She had a CA 19-9 on 03/30/2017 of 1940. She has received one cycle of Abraxane and gemcitabine and she is not any better, but it is too early to determine whether this is working. Options are Hospice or continuing chemotherapy. She is unsure which direction she would like to take. I will consult Hospice to talk to her about supportive care. The second issue is pain control. The Dilaudid works well. I have written for oral Dilaudid 2 mg p.o. q.4h. for pain 1-7, and 4 mg p.o. q.4h. for pain 8-10. The oral morphine will be 30 mg q.8h. and if this is not sufficient then it can be increased. She does not want any cardiopulmonary resuscitation. This has been instituted. She needs better control of her diabetes. This has been a longstanding problem and usually requires an electric meter technician, but I do not believe we have an electric meter technician on staff in the hospital. She is exhausted and will it probably take several days in order to get her pain under control, control her diabetes and have her make a decision about further chemotherapy versus supportive care with Hospice. I have ordered a repeat CA 19-9. MD GHASSAN Camargo/MAXIMO /8:20 PM /7:57 AM SHEA
--- NOTE | 2017-04-24 09:27 | PD.ONC.PN ---
Subjective Subjective Remarks feels better and indicates that pain level minimal with change in medicines and she would be happy if she stay like this until she dies. Objective Data Date Time Temp Pulse Resp B/P Pulse Ox O2 Delivery O2 Flow Rate FiO2 04/24/17 08:00 97.5 74 14 123/69 97 04/24/17 03:26 18 04/24/17 01:56 18 04/24/17 00:00 97.6 80 20 148/76 98 04/23/17 20:00 98.0 84 20 157/79 96 04/23/17 18:30 98.8 91 18 145/75 99 04/23/17 18:01 90 15 177/93 97 04/23/17 13:43 90 15 162/96 98 Room Air 04/23/17 13:42 14 04/23/17 12:50 15 04/23/17 12:50 99.0 90 15 185/93 95 Room Air 04/23/17 12:06 98.5 105 18 183/95 97 Result Diagram: 04/24/17 0416 04/24/17 0416 Laboratory Results Laboratory Tests Test 04/23/17 04/23/17 04/23/17 04/24/17 13:00 14:45 20:46 04:16 White Blood Count 10.6 TH/MM3 6.1 TH/MM3 Red Blood Count 3.81 MIL/MM3 2.82 MIL/MM3 Hemoglobin 10.2 GM/DL 7.5 GM/DL Hematocrit 31.6 % 23.8 % Mean Corpuscular Volume 83.1 FL 84.6 FL Mean Corpuscular Hemoglobin 26.9 PG 26.5 PG Mean Corpuscular Hemoglobin 32.4 % 31.4 % Concent Red Cell Distribution Width 15.2 % 14.9 % Platelet Count 434 TH/MM3 294 TH/MM3 Mean Platelet Volume 8.0 FL 7.6 FL Neutrophils (%) (Auto) 84.3 % 54.1 % Lymphocytes (%) (Auto) 11.8 % 38.9 % Monocytes (%) (Auto) 3.0 % 4.8 % Eosinophils (%) (Auto) 0.1 % 0.9 % Basophils (%) (Auto) 0.8 % 1.3 % Neutrophils # (Auto) 9.0 TH/MM3 3.3 TH/MM3 Lymphocytes # (Auto) 1.3 TH/MM3 2.4 TH/MM3 Monocytes # (Auto) 0.3 TH/MM3 0.3 TH/MM3 Eosinophils # (Auto) 0.0 TH/MM3 0.1 TH/MM3 Basophils # (Auto) 0.1 TH/MM3 0.1 TH/MM3 CBC Comment DIFF FINAL DIFF FINAL Differential Comment Prothrombin Time 12.1 SEC Prothromb Time International 1.1 RATIO Ratio Activated Partial 26.6 SEC Thromboplast Time Sodium Level 129 MEQ/L 138 MEQ/L Potassium Level 3.9 MEQ/L 3.5 MEQ/L Chloride Level 91 MEQ/L 99 MEQ/L Carbon Dioxide Level 27.9 MEQ/L 33.5 MEQ/L Anion Gap 10 MEQ/L 6 MEQ/L Blood Urea Nitrogen 6 MG/DL 7 MG/DL Creatinine 0.51 MG/DL 0.60 MG/DL Estimat Glomerular Filtration 120 ML/MIN 100 ML/MIN Rate Random Glucose 302 MG/DL 257 MG/DL Calcium Level 8.5 MG/DL 7.9 MG/DL Total Bilirubin 0.8 MG/DL 0.4 MG/DL Aspartate Amino Transf 61 U/L 25 U/L (AST/SGOT) Alanine Aminotransferase 49 U/L 30 U/L (ALT/SGPT) Alkaline Phosphatase 137 U/L 102 U/L Total Protein 6.7 GM/DL 5.3 GM/DL Albumin 2.8 GM/DL 2.3 GM/DL Lipase 34 U/L Urine Color LIGHT-YELLOW Urine Turbidity CLEAR Urine pH 6.0 Urine Specific [place] 1.006 Urine Protein NEG mg/dL Urine Glucose (UA) 1000 mg/dL Urine Ketones 40 mg/dL Urine Occult Blood NEG Urine Nitrite NEG Urine Bilirubin NEG Urine Urobilinogen LESS THAN 2.0 MG/DL Urine Leukocyte Esterase NEG Urine RBC LESS THAN 1 /hpf Urine WBC 1 /hpf Urine Squamous Epithelial 4 /hpf Cells Urine Mucus FEW /lpf Microscopic Urinalysis Comment CULT NOT INDICATED CA 19-9 Antigen 2798.8 U/ML Imaging Studies Last 24 hours Impressions Abdomen/Pelvis CT 04/23/17 1242 Signed Impressions: Service Date/Time: April 15:10 - CONCLUSION: Moderate amount of ascites, new. Superficial soft tissue edema also noted. Diffuse apparent colonic wall thickening, likely related to incomplete distention of the colon as areas that are air-filled show no wall thickening. New 2.5 x 1.5 cm lesion in the left lobe of the liver, indeterminate. This finding is likely accessible to CT-guided percutaneous needle biopsy. Akshat Mcdermott MD Administered Medications Medications (Trade) Dose Ordered Sig/Michelle Route PRN Reason Start Time Stop Time Status Last Admin Dose Admin Sodium Chloride (NS 1000 ml Inj) 1,000 ml @ 100 mls/hr Q10H IV 04/23/17 18:00 04/23/17 19:17 Temazepam (Restoril) 7.5 mg HS PRN PO INSOMNIA 04/23/17 17:15 04/23/17 23:29 Heparin Sodium (Porcine) (Heparin Inj) 5,000 units Q12H SQ 04/23/17 18:00 Hold 04/24/17 05:43 Senna/Docusate Sodium (Chayo-Colace) 1 tab BID PO 04/23/17 21:00 04/23/17 20:40 Hydromorphone HCl (Dilaudid Pf Inj) 1 mg Q3H PRN IV Pain 6-10;if unable to take PO 04/23/17 17:30 04/23/17 18:01 Insulin Detemir (Levemir Inj) 6 units HS SQ 04/23/17 21:00 04/23/17 20:44 Levothyroxine Sodium (Synthroid) 100 mcg DAILY@06 PO 04/24/17 06:00 04/24/17 05:43 Morphine Sulfate (Oramorph Sr) 30 mg Q8H PO 04/23/17 18:00 04/24/17 02:26 Amylase/Lipase/ Protease (Creon 12-38-60) 5 cap TIDPC PO 04/23/17 18:30 04/23/17 20:40 Hydromorphone HCl (Dilaudid) 2 mg Q4H PRN PO PAIN SCALE 1 TO 7 04/23/17 20:15 04/24/17 00:56 Objective Remarks GENERAL: comfortable and lucid SKIN: Warm and dry. HEAD: Normocephalic. EYES: No scleral icterus. No injection or drainage. NECK: Supple, trachea midline. No JVD or lymphadenopathy. LYMPHATIC: No adenopathy. CARDIOVASCULAR: Regular rate and rhythm without murmurs. RESPIRATORY: Breath sounds equal bilaterally. No accessory muscle use. GASTROINTESTINAL: minimal upper abd tenderness. EXTREMITIES: No cyanosis, or edema. MUSCULOSKELETAL: Adequate muscle tone. NEUROLOGICAL: No obvious focal deficit. Awake, alert, and oriented x3. PSYCHIATRIC: Appropriate mood and affect; insight and judgment normal. Assessment/Plan Assessment 1: anemia. will transuse 1 unit. check cbc plat in am . 2: pancreatic cancer: CA 19-9 continues to increase consistent with progressive disease, also reflected by liver lesion and new ascites. 3: pain control excellent for the moment. will see if radiology feels a celiac block can be done which might result in more sustained pain control and a lesser need for narcotics. 4: she is dying of progressive pancreatic cancer and I am not convinced that further chemotherapy will change this. I spoke to her again about hospice and she appears agreeable and await hospice consultation. 5. I will be away until Thursday next week but everything appears in order and hopefully she will go home in several days with hospice. Her home situation is problematic and Hospice can help with this and issues of pain control. Isael Vasquez MD Apr 24, 2017 09:27
[2017-04-24] MEDS ORDERED: SODIUM CHLOR 0.9% 250 ML INJ 250 ML IV ONE (09:30)
[2017-04-24] MEDS: DOCUSATE SODIUM 50 MG/SENNA 8.6 MG TAB PO SCH ×2 (10:18→20:43)
[2017-04-24] MEDS: LIPASE/PROTEASE/AMYLASE (12,000/38,000/60,000) CAP PO SCH ×3 (10:18→17:51)
[2017-04-24] MEDS: ASPIRIN EC 81 MG TABEC PO SCH (10:19)
[2017-04-24] MEDS: HYDROmorphone HCL 4 MG TAB PO PRN (15:55)
[2017-04-24] MEDS: INSULIN DETEMIR 100 UNITS/ML VIAL SQ SCH (20:42)
[2017-04-24] MEDS: SODIUM CHLORIDE 0.9% FLUSH 10 ML FLUSH IV FLUSH SCH (20:45)
[2017-04-25] VITALS: BP 142/84; PULSE 73; RESP 18; TEMP 97; O2SAT 94
[2017-04-25] MEDS: HYDROmorphone HCL 4 MG TAB PO PRN (00:44)
[2017-04-25] MEDS: MORPHINE SULFATE 30 MG CONTROLLED RELEASE TAB PO SCH ×3 (02:15→18:09)
[2017-04-25 02:48] VITALS: BP 133/78; PULSE 70; RESP 16; TEMP 97.7; O2SAT 97
[2017-04-25 04:39] LABS: AUTOMATED NEUTROPHIL # 3.7 TH/MM3 (1.8-7.7); BASOPHIL # 0.1 TH/MM3 (0-0.2); EOSINOPHIL # 0.1 TH/MM3 (0-0.4); EOSINOPHIL % 1.9 % (0.0-4.0); HEMATOCRIT 26.4 % (35.0-46.0); HEMO FLAGS DIFF FINAL; LYMPH % 34.4 % (9.0-44.0); LYMPHOCYTE # 2.2 TH/MM3 (1.0-4.8); MEAN CELL VOLUME 84.4 FL (80.0-100.0); MEAN CORPUSCULAR HEMOGLOBIN 27.8 PG (27.0-34.0); MEAN CORPUSCULAR HGB CONC 32.9 % (32.0-36.0); MONO % 6.3 % (0.0-8.0); NEUT % 56.4 % (16.0-70.0); PLATELET COUNT 246 TH/MM3 (150-450); RED BLOOD COUNT 3.13 MIL/MM3 (4.00-5.30); RED CELL DISTRIBUTION WIDTH 15.1 % (11.6-17.2); WHITE BLOOD COUNT 6.5 TH/MM3 (4.0-11.0)
[2017-04-25 04:59] LABS: BICARBONATE 32.6 MEQ/L (21.0-32.0); POTASSIUM 3.4 MEQ/L (3.5-5.1)
[2017-04-25] MEDS: SODIUM CHLOR 0.9% 1000 ML INJ 1,000 ML IV SCH ×3 (05:21→20:43)
[2017-04-25] MEDS: LEVOTHYROXINE SODIUM 100 MCG TAB PO SCH (05:21)
[2017-04-25] MEDS: HEPARIN SODIUM - SQ 10,000 UNITS/ML VIAL SQ SCH ×2 (05:22→16:17)
[2017-04-25] MEDS: INSULIN NovoLIN REGULAR SUPPLEMENTAL SCALE SQ SCH ×4 (06:38→20:38)
[2017-04-25] MEDS ORDERED: POTASSIUM CHLORIDE 10 MEQ CONTROLLED RELEASE TAB PO ONE (07:45)
[2017-04-25 08:00] VITALS: BP 142/83; PULSE 69; RESP 12; TEMP 98.4; O2SAT 97
--- NOTE | 2017-04-25 09:03 | HHI.FPPN ---
Subjective Remarks Patient is doing well this morning. She is walking without difficulty. Her pain is controlled with medications. Denies fever, chills, nausea, vomiting, diarrhea. (Weston Crain MD R2) Objective Vitals Vital Signs Date Time Temp Pulse Resp B/P Pulse Ox O2 Delivery O2 Flow Rate FiO2 04/25/17 02:48 97.7 70 16 133/78 97 04/25/17 00:00 97.0 73 18 142/84 94 04/24/17 23:28 98.1 76 18 149/72 97 04/24/17 23:13 96.8 76 16 155/80 100 04/24/17 20:00 97.5 81 18 148/85 97 04/24/17 16:00 97.3 77 15 147/87 96 04/24/17 12:00 96.5 70 11 147/79 97 I/O 04/24/17 04/24/17 04/24/17 04/25/17 04/25/17 04/25/17 07:00 15:00 23:00 07:00 15:00 23:00 Intake Total 1202 ml 960 ml 480 ml 618 ml Output Total 600 ml Balance 602 ml 960 ml 480 ml 618 ml Intake Oral 480 ml 960 ml 480 ml 0 ml IV Total 722 ml 0 ml 618 ml Output Urine Total 600 ml # Voids 3 2 1 # Bowel Movements 0 0 (Weston Crain MD R2) Result Diagram: 04/25/1741704/25/17417 Objective Remarks GENERAL: in NAD, no resp distress, nontoxic. Sitting comfortably in bed. HEENT: NCAT, EOMI, no scleral icterus, no conjunctival injection. MMM. NECK: Supple, no meningeal signs. CV: RRR, S1 S2. 1/6 systolic murmur. CHEST/PULM: CTAB, no crackles, no wheezes ABD/GI: +BS, soft, nondistended. + Mild tenderness throughout. No rebound, no guarding. EXT: 2+ DP pulses. No calf tenderness, no edema. : No CVAT. NEURO: Awake, alert. Normal muscle tone. SKIN: No rashes, no jaundice. PSYCH: Mood and affect are appropriate. Speech fluent. (Weston Crain MD R2) A/P Assessment and Plan 66-year-old female with known pancreatic cancer presents with metastatic disease and intractable pain. Oncology, Dr. Vasquez consult. Hospice consult. Plan for celiac block on 04/26. Discharge Planning Likely to hospice (Weston Crain MD R2) Attending Attestation Patient seen and examined, discussed with Dr. Maranda Crain. I agree with assessment and management as documented and discussed with me. Pt is tearful this morning, thinking about the end of her life. She reports pain is under good control. Anticipate celiac block by IR on Thursday (Zoë Villatoro MD) Problem List: (1) Pancreatic cancer Status: Acute Plan: Known pancreatic cancer, now with metastases to the liver Oncology consult, Dr. Vasquez (will be away until next Saturday 04/28) Hospice consultation. -Pain control: Continue home morphine ER 30 mg by mouth every 8 hours. Patient now with good pain control with PO dilaudid PRN and morphine scheduled. Dr. Vasquez seeing if radiology will be able to perform a celiac block on 04/27. Continue Creon 5 mg By mouth 3 times a day after meals Ativan 0.25 mg by mouth 3 times a day when necessary anxiety (2) Anemia Status: Acute Plan: Status post 1 unit red blood cells Hemoglobin adequately up trended Repeat H&H at 1800 Transfuse if rapidly downtrending or less than 7. (3) Intractable abdominal pain Status: Resolved Plan: Improved with current pain regimen. See above plan. (4) Diabetes Status: Chronic Plan: Patient normally takes Humalog sliding scale insulin and 6 units of Lantus daily. Provide 6 units Levemir at night. Sliding scale insulin coverage Increase long-acting as appropriate (5) Hyponatremia Status: Resolved Plan: Likely secondary to dehydration. Resolved after IV hydration. (6) Hypothyroid Status: Chronic Plan: Continue home medication. (Weston Crain MD R2) Problem Qualifiers (1) Anemia: Qualified Code: D64.9 - Anemia, unspecified type (2) Diabetes: Qualified Code: E11.8 - Type 2 diabetes mellitus with complication, with long- term current use of insulin Weston Crain MD R2 Apr 25, 2017 09:03 Zoë Villatoro MD Apr 25, 2017 12:14
[2017-04-25] MEDS: LIPASE/PROTEASE/AMYLASE (12,000/38,000/60,000) CAP PO SCH ×3 (10:00→18:09)
[2017-04-25] MEDS: ASPIRIN EC 81 MG TABEC PO SCH (10:01)
[2017-04-25] MEDS: DOCUSATE SODIUM 50 MG/SENNA 8.6 MG TAB PO SCH ×2 (10:01→20:43)
[2017-04-25] MEDS: SODIUM CHLORIDE 0.9% FLUSH 10 ML FLUSH IV FLUSH SCH ×2 (10:02→20:43)
--- NOTE | 2017-04-25 10:58 | PD.ONC.PN ---
Subjective Subjective Remarks Afebrile overnight. Feels much better with the dilaudid. Mentions that "I don't want to go through with any more chemo. I just want my pain controlled" Not quite ready for hospice. Difficulty with having bowel movements Objective Data Date Time Temp Pulse Resp B/P Pulse Ox O2 Delivery O2 Flow Rate FiO2 04/25/17 08:00 98.4 69 12 142/83 97 04/25/17 02:48 97.7 70 16 133/78 97 04/25/17 00:00 97.0 73 18 142/84 94 04/24/17 23:28 98.1 76 18 149/72 97 04/24/17 23:13 96.8 76 16 155/80 100 04/24/17 20:00 97.5 81 18 148/85 97 04/24/17 16:00 97.3 77 15 147/87 96 04/24/17 12:00 96.5 70 11 147/79 97 Result Diagram: 04/25/17 0418 04/25/17 0418 Laboratory Results Laboratory Tests Test 04/24/17 04/24/17 04/25/17 16:48 19:35 04:18 Blood Type A NEGATIVE A NEGATIVE Antibody Screen NEGATIVE Crossmatch Leukocyte-Reduced Red Blood Cells Blood Bank Comment White Blood Count 6.5 TH/MM3 Red Blood Count 3.13 MIL/MM3 Hemoglobin 8.7 GM/DL Hematocrit 26.4 % Mean Corpuscular Volume 84.4 FL Mean Corpuscular Hemoglobin 27.8 PG Mean Corpuscular Hemoglobin 32.9 % Concent Red Cell Distribution Width 15.1 % Platelet Count 246 TH/MM3 Mean Platelet Volume 7.3 FL Neutrophils (%) (Auto) 56.4 % Lymphocytes (%) (Auto) 34.4 % Monocytes (%) (Auto) 6.3 % Eosinophils (%) (Auto) 1.9 % Basophils (%) (Auto) 1.0 % Neutrophils # (Auto) 3.7 TH/MM3 Lymphocytes # (Auto) 2.2 TH/MM3 Monocytes # (Auto) 0.4 TH/MM3 Eosinophils # (Auto) 0.1 TH/MM3 Basophils # (Auto) 0.1 TH/MM3 CBC Comment DIFF FINAL Differential Comment Sodium Level 138 MEQ/L Potassium Level 3.4 MEQ/L Chloride Level 99 MEQ/L Carbon Dioxide Level 32.6 MEQ/L Anion Gap 6 MEQ/L Blood Urea Nitrogen 11 MG/DL Creatinine 0.47 MG/DL Estimat Glomerular Filtration 132 ML/MIN Rate Random Glucose 103 MG/DL Calcium Level 7.8 MG/DL Administered Medications Medications (Trade) Dose Ordered Sig/Michelle Route PRN Reason Start Time Stop Time Status Last Admin Dose Admin Sodium Chloride (NS 1000 ml Inj) 1,000 ml @ 100 mls/hr Q10H IV 04/23/17 18:00 04/25/17 10:02 Sodium Chloride (NS Flush) 2 ml BID IV FLUSH 04/23/17 21:00 04/25/17 10:02 Temazepam (Restoril) 7.5 mg HS PRN PO INSOMNIA 04/23/17 17:15 04/23/17 23:29 Heparin Sodium (Porcine) (Heparin Inj) 5,000 units Q12H SQ 04/23/17 18:00 04/26/17 18:00 04/25/17 05:22 Senna/Docusate Sodium (Chayo-Colace) 1 tab BID PO 04/23/17 21:00 04/25/17 10:01 Magnesium Hydroxide (Milk Of Magnesia Liq) 30 ml Q12H PRN PO MILD - MODERATE CONSTIPATION 04/23/17 17:15 04/25/17 10:14 Hydromorphone HCl (Dilaudid Pf Inj) 1 mg Q3H PRN IV Pain 6-10;if unable to take PO 04/23/17 17:30 04/23/17 18:01 Insulin Detemir (Levemir Inj) 6 units HS SQ 04/23/17 21:00 04/24/17 20:42 Aspirin (Ecotrin Ec) 81 mg DAILY PO 04/24/17 09:00 04/25/17 10:01 Levothyroxine Sodium (Synthroid) 100 mcg DAILY@06 PO 04/24/17 06:00 04/25/17 05:21 Morphine Sulfate (Oramorph Sr) 30 mg Q8H PO 04/23/17 18:00 04/25/17 10:01 Amylase/Lipase/ Protease (Creon 12-38-60) 5 cap TIDPC PO 04/23/17 18:30 04/25/17 10:00 Hydromorphone HCl (Dilaudid) 2 mg Q4H PRN PO PAIN SCALE 1 TO 7 04/23/17 20:15 04/24/17 00:56 Hydromorphone HCl (Dilaudid) 4 mg Q4H PRN PO PAIN SCALE 8 TO 10 04/23/17 20:15 04/25/17 00:44 Objective Remarks GENERAL: Appears comfortable sitting up on side of bed in no distress eating a bagel. SKIN: Warm and dry. HEAD: Normocephalic. EYES: No injection or drainage. NECK: Supple, trachea midline. CARDIOVASCULAR: +S1/S2. No murmur noted. RESPIRATORY: Lungs clear posteriorly. GASTROINTESTINAL: Abdomen round, protuberant and firm. Minimal tenderness. EXTREMITIES: 1+ bilateral lower extremity edema. NEUROLOGICAL: No obvious focal deficit. Awake, alert, and oriented x3. PSYCHIATRIC: Periods of tearfulness and smiling throughout visit. Assessment/Plan Problem List: (1) Pancreatic cancer Status: Acute Plan: -- Original diagnosis was January 2016. -- Had whipple procedure with Dr Gerardo 08/2016 and was found to have positive lymph nodes. -- 1 cycle of Gemcitabine and Abraxane on 04/03. -- CA 19-9 increasing. -- Pt does not want to go through with more chemo, only wants pain controlled. (2) Anemia Status: Acute Plan: -- Will obtain stool for occult blood -- Rec'd 1 unit PRBC on 04/24/17. Assessment 66 y/o female with metastatic pancreatic cancer to liver admitted with abdominal pain Plan 1: Obtain stool for occult blood. Monitor CBC 2: Monitor ascites; may get US of abdomen to ascertain if fluid needs drained. 3: Hospice following; pt not ready to be discharged with Hospice at this time. 4. Continue pain control. Once pt no longer needs IV dilaudid she can be discharged. Problem Qualifiers (1) Anemia: Qualified Code: D64.9 - Anemia, unspecified type Aretha Murray Apr 25, 2017 10:58
[2017-04-25 12:00] VITALS: BP 141/82; PULSE 80; RESP 19; TEMP 97.8; O2SAT 98
[2017-04-25 16:00] VITALS: BP 146/98; PULSE 79; RESP 18; TEMP 98.6; O2SAT 99
[2017-04-25 18:29] LABS: REVIEW FLAG FINAL
[2017-04-25 20:00] VITALS: BP 148/85; PULSE 73; RESP 20; TEMP 97.7; O2SAT 100
[2017-04-25] MEDS: INSULIN DETEMIR 100 UNITS/ML VIAL SQ SCH (20:37)
[2017-04-26] VITALS: BP 128/81; PULSE 72; RESP 20; TEMP 97.5; O2SAT 98
[2017-04-26] MEDS: MORPHINE SULFATE 30 MG CONTROLLED RELEASE TAB PO SCH ×3 (02:22→17:34)
[2017-04-26] MEDS: SODIUM CHLOR 0.9% 1000 ML INJ 1,000 ML IV SCH ×2 (02:22→16:27)
[2017-04-26 04:57] LABS: AUTOMATED NEUTROPHIL # 3.2 TH/MM3 (1.8-7.7); BASOPHIL # 0.1 TH/MM3 (0-0.2); BASOPHIL % 0.9 % (0.0-2.0); EOSINOPHIL # 0.2 TH/MM3 (0-0.4); EOSINOPHIL % 3.2 % (0.0-4.0); HEMATOCRIT 27.9 % (35.0-46.0); HEMO FLAGS DIFF FINAL; LYMPH % 36.5 % (9.0-44.0); LYMPHOCYTE # 2.2 TH/MM3 (1.0-4.8); MEAN CELL VOLUME 85.3 FL (80.0-100.0); MEAN CORPUSCULAR HEMOGLOBIN 27.1 PG (27.0-34.0); MEAN CORPUSCULAR HGB CONC 31.8 % (32.0-36.0); NEUT % 53.4 % (16.0-70.0); PLATELET COUNT 227 TH/MM3 (150-450); RED BLOOD COUNT 3.27 MIL/MM3 (4.00-5.30); RED CELL DISTRIBUTION WIDTH 14.8 % (11.6-17.2)
[2017-04-26 05:08] LABS: ANION GAP 6 MEQ/L (5-15); BICARBONATE 32.3 MEQ/L (21.0-32.0); BLOOD UREA NITROGEN 9 MG/DL (7-18); CHLORIDE 101 MEQ/L (98-107); POTASSIUM 3.6 MEQ/L (3.5-5.1); SODIUM (NA) 139 MEQ/L (136-145)
[2017-04-26 05:11] LABS: ALKALINE PHOSPHATASE 99 U/L (45-117); ALT (GPT) 27 U/L (10-53); GLOMERULAR FILTRATION RATE 135 ML/MIN (>89); TOTAL BILIRUBIN ADULT 0.3 MG/DL (0.2-1.0)
[2017-04-26 05:23] LABS: AST (GOT) 23 U/L (15-37)
[2017-04-26] MEDS: INSULIN NovoLIN REGULAR SUPPLEMENTAL SCALE SQ SCH ×4 (05:48→20:40)
[2017-04-26] MEDS: LEVOTHYROXINE SODIUM 100 MCG TAB PO SCH (05:48)
[2017-04-26] MEDS: HEPARIN SODIUM - SQ 10,000 UNITS/ML VIAL SQ SCH ×2 (05:48→16:55)
[2017-04-26 08:00] VITALS: BP 155/94; PULSE 79; RESP 20; TEMP 98.8; O2SAT 96
--- NOTE | 2017-04-26 08:17 | HHI.FPPN ---
Subjective Remarks No acute events overnight. She states her pain has been well controlled with her current regimen all by mouth. She continues to state that her goal is adequate pain control and making the most of the time she has left. She states her appetite is good. At least 7 BMs over past 24 hrs per EMR. Denies any visible blood in stools or melena. She states she is no longer having issues with constipation with her current bowel regimen. No issues voiding or ambulating. Denies fevers, CP, SOB. No other complaints. She is eager to make plans within the [facility] after being discharged from here. She has plans to visit her partners mother in [place]. (Nigel Uribe MD R1) Objective Vitals Vital Signs Date Time Temp Pulse Resp B/P Pulse Ox O2 Delivery O2 Flow Rate FiO2 04/26/17 00:00 97.5 72 20 128/81 98 04/25/17 20:00 97.7 73 20 148/85 100 04/25/17 16:00 98.6 79 18 146/98 99 04/25/17 12:00 97.8 80 19 141/82 98 I/O 04/25/17 04/25/17 04/25/17 04/26/17 04/26/17 04/26/17 07:00 15:00 23:00 07:00 15:00 23:00 Intake Total 618 ml 960 ml 1200 ml 1090 ml Balance 618 ml 960 ml 1200 ml 1090 ml Intake Oral 0 ml 960 ml 480 ml 480 ml IV Total 618 ml 720 ml 610 ml # Voids 1 4 3 3 # Bowel Movements 1 3 3 (Nigel Uribe MD R1) Result Diagram: 04/26/17 0401 04/26/17 0401 Objective Remarks GENERAL: NAD. Pleasant. Comfortable. HEENT: NCAT, EOMI, no scleral icterus, no conjunctival injection. MMM. NECK: Supple, no meningeal signs. CV: RRR, S1 S2. 1/6 systolic murmur. CHEST/PULM: CTAB, no crackles, no wheezes ABD/GI: +BS, soft, nondistended. nontender. No rebound, no guarding. EXT: 2+ DP pulses. No calf tenderness, no edema. NEURO: Awake, alert. Normal muscle tone. SKIN: No rashes, no jaundice. PSYCH: Mood and affect are appropriate. Speech fluent. (Nigel Uribe MD R1 ) A/P Assessment and Plan 66-year-old female with known pancreatic cancer presented with metastatic disease and intractable pain. Oncology, Dr. Vasquez consult. Hospice consult. Discharge Planning Likely to hospice (Nigel Uribe MD R1) Attending Attestation Patient seen and examined, discussed with Dr. Uribe. I agree with assessment and management as documented and discussed with me. Pain is well controlled. Hospice in to see patient again as a follow up. For Celiac block tomorrow by IR. (Zoë Villatoro MD) Problem List: (1) Pancreatic cancer Status: Acute Plan: Known pancreatic cancer, now with metastases to the liver Oncology consult, Dr. Vasquez (will be away until next Saturday 04/28) Hospice consultation. -Pain control: Continue home morphine ER 30 mg by mouth every 8 hours. Patient now with good pain control with PO dilaudid PRN and morphine scheduled. Plan for celiac axis block Friday 04/27. - NPO after MN - Hold heparin after today's dose in PM Continue Creon 5 mg By mouth 3 times a day after meals Ativan 0.25 mg by mouth 3 times a day when necessary anxiety (2) Anemia Status: Acute Plan: Status post 1 unit red blood cells Hemoglobin adequately up trended Hgb stable Hemoccult negative Transfuse if rapidly downtrending or less than 7. (3) Intractable abdominal pain Status: Resolved Plan: Improved with current pain regimen. See above plan. (4) Diabetes Status: Chronic Plan: Patient normally takes Humalog sliding scale insulin and 6 units of Lantus daily. Provide 6 units Levemir at night. Sliding scale insulin coverage Increase long-acting as appropriate (5) Hyponatremia Status: Resolved Plan: Likely secondary to dehydration. Resolved after IV hydration. (6) Hypothyroid Status: Chronic Plan: Continue home medication. (Nigel Uribe MD R1) Problem Qualifiers (1) Anemia: Qualified Code: D64.9 - Anemia, unspecified type (2) Diabetes: Qualified Code: E11.8 - Type 2 diabetes mellitus with complication, with long- term current use of insulin Nigel Uribe MD R1 Apr 26, 2017 08:17 Zoë Villatoro MD Apr 26, 2017 12:07
[2017-04-26] MEDS: SODIUM CHLORIDE 0.9% FLUSH 10 ML FLUSH IV FLUSH SCH ×2 (09:00→20:25)
[2017-04-26] MEDS: LIPASE/PROTEASE/AMYLASE (12,000/38,000/60,000) CAP PO SCH ×3 (09:36→17:34)
[2017-04-26] MEDS: DOCUSATE SODIUM 50 MG/SENNA 8.6 MG TAB PO SCH ×2 (09:37→20:25)
[2017-04-26] MEDS: ASPIRIN EC 81 MG TABEC PO SCH (09:37)
[2017-04-26 12:00] VITALS: BP 147/79; PULSE 78; RESP 15; TEMP 98.2; O2SAT 100
--- NOTE | 2017-04-26 13:26 | HHI.FPPN ---
Addendum to progress note ADDENDUM Reason for addendum: Additonal documentation Additional information Off-service Note 66 year old very pleasant woman with h/o locally advanced pancreatic cancer found in February 2016 presented due to intractable pain constant 10 out of 10 in her abdomen and back. From information obtained from Dr. Vasquez note in January 2017, patient has clinical T3 N1 M0. She received chemotherapy and the CA-19-9 fell to 107 and she had a normal PET scan. She had a Whipple procedure 08/2016 and was found to have residual cancer with a 2.5 cm pancreatic poorly differentiated adenocarcinoma and 3 positive lymph nodes. Her plan was to be treated with radiation therapy with oral xeloda following the surgery. However , she never recovered well enough to do this. Oncology was consulted, Dr. Vasquez has met with the patient and her goals have been discussed. She is wanting adequate pain control and does not want to undergo any further chemotherapy. Her pain has been well-controlled with by mouth narcotics per oncology. Plan is for a celiac axis block by IR on Friday 04/27. Hospice is following, per oncology the patient is not yet ready to be discharged with hospice at this time. Nigel Uribe MD R1 Apr 26, 2017 13:26
[2017-04-26 16:00] VITALS: BP 142/94; PULSE 86; RESP 16; TEMP 98.6; O2SAT 97
[2017-04-26] MEDS: HYDROmorphone HCL 4 MG TAB PO PRN ×2 (16:28→20:35)
[2017-04-26 20:00] VITALS: BP 142/89; PULSE 81; RESP 20; TEMP 99.2; O2SAT 98
[2017-04-26] MEDS: INSULIN DETEMIR 100 UNITS/ML VIAL SQ SCH (20:39)
[2017-04-27] VITALS (9 sets, daily range): BP systolic 135–195; BP diastolic 68–97; PULSE 60–89; RESP 16–20; TEMP 96–98.3; O2SAT 95–100
[2017-04-27] MEDS: MORPHINE SULFATE 30 MG CONTROLLED RELEASE TAB PO SCH ×3 (02:57→17:20)
[2017-04-27] MEDS: SODIUM CHLOR 0.9% 1000 ML INJ 1,000 ML IV SCH ×3 (02:57→20:57)
[2017-04-27] MEDS: LEVOTHYROXINE SODIUM 100 MCG TAB PO SCH (04:29)
[2017-04-27] MEDS: INSULIN NovoLIN REGULAR SUPPLEMENTAL SCALE SQ SCH ×4 (04:32→21:07)
[2017-04-27 05:27] LABS: HEMATOCRIT 26.4 % (35.0-46.0); REVIEW FLAG FINAL
--- NOTE | 2017-04-27 08:29 | HHI.FPPN ---
Subjective Remarks He is overnight. Afebrile, vital signs stable. Patient continues to complain of lower abdominal pain that is worse with palpation. She is nothing by mouth for celiac block with interventional radiology later today. The patient reports continued constipation and states she has not had a bowel movement in 3 days. She is concerned about going home because she is the person who has to care for her house and is afraid this will interfere with her caring for herself. She has spoken with hospice, and states she does not wish to have hospice polio involved this time. She will allow hospice to come in once per week to check on her. (Dunia Dougherty MD R3) Objective Vitals Vital Signs Date Time Temp Pulse Resp B/P Pulse Ox O2 Delivery O2 Flow Rate FiO2 04/27/17 00:00 97.9 74 20 145/80 96 04/26/17 20:00 99.2 81 20 142/89 98 04/26/17 16:00 98.6 86 16 142/94 97 04/26/17 12:00 98.2 78 15 147/79 100 I/O 04/26/17 04/26/17 04/26/17 04/27/17 04/27/17 04/27/17 07:00 15:00 23:00 07:00 15:00 23:00 Intake Total 1090 ml 1200 ml 1040 ml 800 ml Balance 1090 ml 1200 ml 1040 ml 800 ml Intake Oral 480 ml 1200 ml 240 ml 0 ml IV Total 610 ml 800 ml 800 ml # Voids 3 3 2 0 # Bowel Movements 3 0 0 (Dunia Dougherty MD R3) Result Diagram: 04/27/17 0453 04/26/17 0401 Objective Remarks GENERAL: NAD. Pleasant. HEENT: NCAT, EOMI, no scleral icterus, no conjunctival injection. MMM. NECK: Supple, no meningeal signs. CV: RRR, S1 S2. 1/6 systolic murmur. CHEST/PULM: CTAB, no crackles, no wheezes ABD/GI: +BS, soft, nondistended. No rebound, no guarding. Exquisitely tender to palpation in the lower quadrants. EXT: 2+ DP pulses. No calf tenderness, no edema. NEURO: Awake, alert. Normal muscle tone. SKIN: No rashes, no jaundice. PSYCH: Mood and affect are appropriate. Speech fluent. (Dunia Dougherty MD R3) A/P Assessment and Plan 66-year-old female with known pancreatic cancer presented with metastatic disease and intractable pain. Oncology, Dr. Vasquez consult. Hospice consult. Discharge Planning Home with home hospice (Dunia Dougherty MD R3) Attending Attestation Patient seen and examined. Case reviewed and discussed. Agree with plan of care as discussed with me and documented in the resident note. (Wendy Cancino MD) Problem List: (1) Pancreatic cancer Status: Acute Plan: Known pancreatic cancer, now with metastases to the liver Oncology consult, Dr. Vasquez (will be away until next Saturday 04/28) Hospice consultation. Patient will allow hospice to come check on her weekly. -Pain control: Continue home morphine ER 30 mg by mouth every 8 hours. Patient continues to have pain. Last required Dilaudid yesterday evening 20:00 Plan for celiac axis block today, pending results may discharge later today but likely tomorrow. -Continue Creon 5 mg By mouth 3 times a day after meals -Ativan 0.25 mg by mouth 3 times a day when necessary anxiety (2) Anemia Status: Acute Plan: Status post 1 unit red blood cells Hemoglobin adequately up trended Hgb stable, continue to follow Hemoccult negative Transfuse if rapidly downtrending or less than 7. (3) Intractable abdominal pain Status: Resolved Plan: Improved with current pain regimen. See above plan. (4) Diabetes Status: Chronic Plan: Patient normally takes Humalog sliding scale insulin and 6 units of Lantus daily. Provide 6 units Levemir at night. Sliding scale insulin coverage Blood sugars have been well controlled (5) Hyponatremia Status: Resolved Plan: Likely secondary to dehydration. Resolved after IV hydration. (6) Hypothyroid Status: Chronic Plan: Continue home medication. (Dunia Dougherty MD R3) Problem Qualifiers (1) Anemia: Qualified Code: D64.9 - Anemia, unspecified type (2) Diabetes: Qualified Code: E11.8 - Type 2 diabetes mellitus with complication, with long- term current use of insulin Dunia Dougherty MD R3 Apr 27, 2017 08:29 Wendy Cancino MD Apr 28, 2017 16:10
[2017-04-27] MEDS ORDERED: SOD PHOSPHATE/SOD BIPHOSPHATE (ADULT) ENEMA 133ML RECTAL PRN (08:30)
[2017-04-27] MEDS ORDERED: BISACODYL 10 MG SUPP RECTAL PRN (08:30)
[2017-04-27] MEDS: DOCUSATE SODIUM 50 MG/SENNA 8.6 MG TAB PO SCH ×2 (08:47→20:57)
[2017-04-27] MEDS: LIPASE/PROTEASE/AMYLASE (12,000/38,000/60,000) CAP PO SCH ×3 (08:47→17:21)
[2017-04-27] MEDS: SODIUM CHLORIDE 0.9% FLUSH 10 ML FLUSH IV FLUSH SCH ×2 (08:48→20:58)
[2017-04-27] MEDS: ASPIRIN EC 81 MG TABEC PO SCH (08:48)
[2017-04-27] MEDS: HYDROmorphone HCL 2 MG TAB PO PRN (08:48)
[2017-04-27] MEDS ORDERED: cloNIDine HCL 0.1 MG TAB PO ONE (11:00)
[2017-04-27] MEDS ORDERED: hydrALAZINE HCL 10 MG TAB PO PRN (11:00)
[2017-04-27] MEDS ORDERED: cloNIDine HCL 0.1 MG TAB PO PRN (11:00)
[2017-04-27] MEDS ORDERED: LIDOCAINE HCL 1% PF 30 ML VIAL ONE (14:49)
[2017-04-27] MEDS ORDERED: ALCOHOL, DEHYDRATED (ABSOLUTE) 5 ML VIAL ONE (15:09)
[2017-04-27] MEDS ORDERED: fentaNYL CITRATE 250 MCG/5 ML AMP ONE (15:10)
[2017-04-27] MEDS ORDERED: ROPIVACAINE 1% PF INJ 20 ML AMP ONE (15:10)
[2017-04-27] MEDS ORDERED: MIDAZOLAM HCL 5 MG/5 ML VIAL ONE (15:10)
[2017-04-27] MEDS ORDERED: BUPIVACAINE HCL PF 0.75% 30 ML VIAL ONE (15:11)
--- NOTE | 2017-04-27 15:57 | PD.RAD ---
Post Procedure Progress Note Pre Procedure Diagnosis: (1) Abdominal pain (2) Pancreatic cancer (3) Intractable abdominal pain Post Procedure Diagnosis: (1) Intractable abdominal pain (2) Pancreatic cancer (3) Abdominal pain Procedure Date: Apr 27, 2017 Supervising Radiologist: Nilesh Alexandra Anesthesia: Local, Conscious Sedation Plan of Activity Patient to Unit: Nursing Unit Patient Condition: Fair Additional Comments: CT guided ciliac plexus neurolysis completed. 2cc of anhydrous Alcohol administered Pt tolerated the procedure well See PACS Report for procedural detail/treatment Nilesh Alexandra MD Apr 27, 2017 15:57
--- NOTE | 2017-04-27 17:35 | RADRPT ---
EXAM DATE/TIME: 04/27/2017 15:27 [place] COMPARISON: CT ABDOMEN & PELVIS W CONTRAST, April 23, 2017, 15:10. INDICATIONS : Celiac nerve pain CONTRAST: 3 cc Visipaque (iodixanol) MEDICATION(S): 1.) 2.5 mg midazolam (Versed) IV 2.) 125 mcg fentanyl (Sublimaze) IV DEVICE(S): 1.) 22 gauge Chiba needle Pre-procedure pain level was Pre-procedure pain level was MEDICAL HISTORY : Carcinoma, pancreas. Cardiovascular disease. Thyroid dis,diabetes SURGICAL HISTORY : Coronary artery stent. Hysterectomy. Whipple ENCOUNTER: Initial ACUITY: 1 day PAIN SCORE: 3/10 LOCATION: Abdomen PROCEDURE : CT guided celiac plexus block. The risks, benefits and alternatives to the procedure were explained and verbal and written consent w as obtained. Using automated exposure control and adjustment of the mA and/or kV according to patien t size, radiation dose was kept as low as reasonably achievable to obtain optimal diagnostic quality images. The site was prepped in sterile fashion. Full sterile technique was used, including cap, ma sk, sterile gloves and gown and a large sterile sheet. Hand hygiene and 2% chlorhexidine and/or beta dine/alcohol prep was utilized per protocol for cutaneous antisepsis. The skin and subcutaneous tiss ues were infiltrated with local anesthetic solution. A 25 gauge Chiba needle was advanced from the left back down to a point immediately adjacent to the c eliac axis. Approximately 1 cc of contrast was administered to confirm placement. 2.5 cc of a mixture consisting of 80% anhydrous alcohol and 20% bupivacaine was advanced through the needle. Followup CT imaging demonstrated good distribution of alcohol on the celiac plexus and up to the base of the SMA. The patient tolerated the procedure well. CONCLUSION: Uncomplicated neurolysis of the celiac plexus as above. Nilesh Alexandra MD on April 27, 2017 at 17:30 Board Certified Radiologist. This report was verified electronically.
[2017-04-27] MEDS: INSULIN DETEMIR 100 UNITS/ML VIAL SQ SCH (21:06)
[2017-04-28] VITALS: BP 130/75; PULSE 70; RESP 17; TEMP 97.6; O2SAT 96
[2017-04-28] MEDS: MORPHINE SULFATE 30 MG CONTROLLED RELEASE TAB PO SCH ×2 (02:27→11:43)
[2017-04-28] MEDS: LEVOTHYROXINE SODIUM 100 MCG TAB PO SCH (06:03)
[2017-04-28] MEDS: INSULIN NovoLIN REGULAR SUPPLEMENTAL SCALE SQ SCH ×2 (06:05→11:56)
[2017-04-28 08:00] VITALS: BP 165/91; PULSE 76; RESP 16; TEMP 97.8; O2SAT 97
[2017-04-28] MEDS: SODIUM CHLOR 0.9% 1000 ML INJ 1,000 ML IV SCH (08:00)
[2017-04-28] MEDS: LIPASE/PROTEASE/AMYLASE (12,000/38,000/60,000) CAP PO SCH ×2 (08:41→11:49)
[2017-04-28] MEDS: ASPIRIN EC 81 MG TABEC PO SCH (08:42)
[2017-04-28] MEDS: SODIUM CHLORIDE 0.9% FLUSH 10 ML FLUSH IV FLUSH SCH (08:42)
[2017-04-28] MEDS: DOCUSATE SODIUM 50 MG/SENNA 8.6 MG TAB PO SCH (08:42)
[2017-04-28 08:55] VITALS: BP 139/83
[2017-04-28] MEDS: HYDROmorphone HCL 4 MG TAB PO PRN (08:57)
--- NOTE | 2017-04-28 09:53 | PD.ONC.PN ---
Subjective Subjective Remarks Afebrile overnight. Patient resting in bed. She is still having pain in her abdomen but states it is controlled with current pain regimen of Oramorph + dilaudid PO for breakthrough. She is going to be discharged home with hospice and states she is grateful to have them come visit her in her home, but doesn't "need full-time help yet." +Having bowel movements regularly now. Objective Data Date Time Temp Pulse Resp B/P Pulse Ox O2 Delivery O2 Flow Rate FiO2 04/28/17 08:55 139/83 04/28/17 08:00 97.8 76 16 165/91 97 04/28/17 00:00 97.6 70 17 130/75 96 04/28/17 00:00 Room Air 04/27/17 20:00 97.8 89 18 151/83 97 04/27/17 20:00 Room Air 04/27/17 17:44 96.0 68 17 164/68 100 04/27/17 16:40 60 16 135/87 98 04/27/17 16:27 60 16 150/94 95 04/27/17 16:10 97.7 72 16 149/95 95 04/27/17 12:00 98.3 80 17 177/83 99 04/28/17 04/28/17 04/28/17 07:00 15:00 23:00 Intake Total 1048 ml Balance 1048 ml Result Diagram: 04/27/17 0453 04/26/17 0401 Culture Results Microbiology Date/Time Procedure Status Source Growth 04/25/17 21:00 Stool Occult Blood ([facility]) - Final Complete Stool Stool HEMOCCULT NEGATIVE Administered Medications Medications (Trade) Dose Ordered Sig/Michelle Route PRN Reason Start Time Stop Time Status Last Admin Dose Admin Sodium Chloride (NS 1000 ml Inj) 1,000 ml @ 100 mls/hr Q10H IV 04/23/17 18:00 04/27/17 20:57 Sodium Chloride (NS Flush) 2 ml BID IV FLUSH 04/23/17 21:00 04/28/17 08:42 Temazepam (Restoril) 7.5 mg HS PRN PO INSOMNIA 04/23/17 17:15 04/23/17 23:29 Magnesium Hydroxide (Milk Of Magnesia Liq) 30 ml Q12H PRN PO MILD - MODERATE CONSTIPATION 04/23/17 17:15 04/25/17 10:14 Lactulose (Lactulose Liq) 30 ml DAILY PRN PO SEVERE CONSITIPATION 04/23/17 17:15 04/25/17 13:37 Hydromorphone HCl (Dilaudid Pf Inj) 1 mg Q3H PRN IV Pain 6-10;if unable to take PO 04/23/17 17:30 04/23/17 18:01 Insulin Detemir (Levemir Inj) 6 units HS SQ 04/23/17 21:00 04/27/17 21:06 Aspirin (Ecotrin Ec) 81 mg DAILY PO 04/24/17 09:00 04/28/17 08:42 Levothyroxine Sodium (Synthroid) 100 mcg DAILY@06 PO 04/24/17 06:00 04/28/17 06:03 Morphine Sulfate (Oramorph Sr) 30 mg Q8H PO 04/23/17 18:00 04/28/17 02:27 Amylase/Lipase/ Protease (Creon 12-38-60) 5 cap TIDPC PO 04/23/17 18:30 04/28/17 08:41 Hydromorphone HCl (Dilaudid) 2 mg Q4H PRN PO PAIN SCALE 1 TO 7 04/23/17 20:15 04/27/17 08:48 Hydromorphone HCl (Dilaudid) 4 mg Q4H PRN PO PAIN SCALE 8 TO 10 04/23/17 20:15 04/28/17 08:57 Senna/Docusate Sodium (Chayo-Colace) 2 tab BID PO 04/27/17 09:00 04/28/17 08:42 Objective Remarks GENERAL: Middle aged female, sitting up in bed eating breakfast. SKIN: Warm and dry. HEAD: Normocephalic. EYES: no injection or drainage. NECK: Supple, trachea midline. CARDIOVASCULAR: Regular rate and rhythm RESPIRATORY: Breath sounds equal bilaterally. No accessory muscle use. GASTROINTESTINAL: Abdomen soft, non-tender, nondistended. EXTREMITIES: No cyanosis. NEUROLOGICAL: No obvious focal deficit. Awake, alert, and oriented x3. Assessment/Plan Assessment 66 y/o female with metastatic pancreatic cancer Plan 1. clear for discharge home from oncology perspective. Agree with patient's decision to go home with hospice. Patient will also call clinic to make a follow up clinic appointment with Dr. Vasquez 2. continue pain regimen, supportive care. Christina Reid Apr 28, 2017 09:53
[2017-04-28] MEDS ORDERED: ALPR.25 PO (10:24)
[2017-04-28] MEDS ORDERED: SENN1TAB PO (10:24)
[2017-04-28] MEDS ORDERED: MORP1TAB25 PO (10:24)
[2017-04-28] MEDS ORDERED: DILA2TAB2 PO (10:24)
--- NOTE | 2017-04-28 10:25 | HHI.DCPOC ---
Discharge Care Plan Goals to Promote Your Health * To prevent worsening of your condition and complications follow all discharge instructions * To maintain your health at the optimal level take all medications as prescribed Directions to Meet Your Goals Take your medications as prescribed Follow your dietary instruction Follow activity as directed Keep your appointments as scheduled Take your immunizations and boosters as scheduled If your symptoms worsen call your PCP, if no PCP go to Urgent Care Center or Emergency Room Smoking is Dangerous to Your Health. Avoid second hand smoke Call the 24-hour hour crisis hotline for domestic abuse at Dunia Dougherty MD R3 Apr 28, 2017 10:25
--- NOTE | 2017-04-28 10:30 | HHI.FPPN ---
Subjective Remarks No acute events overnight. Afebrile, vital signs stable. Patient reports bowel movement and is feeling much better on the constipation front. She is unsure if her celiac block worked as she was still having 8/10 lower abdominal pain. Her pain is relieved by her oral Dilaudid. She states she is ready to go home today with hospice. (Dunia Dougherty MD R3) Objective Vitals Vital Signs Date Time Temp Pulse Resp B/P Pulse Ox O2 Delivery O2 Flow Rate FiO2 04/28/17 08:55 139/83 04/28/17 08:00 97.8 76 16 165/91 97 04/28/17 00:00 97.6 70 17 130/75 96 04/28/17 00:00 Room Air 04/27/17 20:00 97.8 89 18 151/83 97 04/27/17 20:00 Room Air 04/27/17 17:44 96.0 68 17 164/68 100 04/27/17 16:40 60 16 135/87 98 04/27/17 16:27 60 16 150/94 95 04/27/17 16:10 97.7 72 16 149/95 95 04/27/17 12:00 98.3 80 17 177/83 99 I/O 04/27/17 04/27/17 04/27/17 04/28/17 04/28/17 04/28/17 07:00 15:00 23:00 07:00 15:00 23:00 Intake Total 800 ml 0 ml 976 ml 1048 ml Output Total 600 ml Balance 800 ml 0 ml 376 ml 1048 ml Intake Oral 0 ml 0 ml 480 ml 360 ml IV Total 800 ml 496 ml 688 ml Output Urine Total 600 ml # Voids 0 4 3 # Bowel Movements 0 1 1 (Dunia Dougherty MD R3) Result Diagram: 04/27/17 0453 04/26/17 0401 Objective Remarks GENERAL: NAD. Pleasant. HEENT: NCAT, EOMI, no scleral icterus, no conjunctival injection. MMM. NECK: Supple, no meningeal signs. CV: RRR, S1 S2. 1/6 systolic murmur. CHEST/PULM: CTAB, no crackles, no wheezes ABD/GI: +BS, soft, nondistended. No rebound, no guarding. EXT: 2+ DP pulses. No calf tenderness, no edema. NEURO: Awake, alert. Normal muscle tone. SKIN: No rashes, no jaundice. PSYCH: Mood and affect are appropriate. Speech fluent. (Dunia Dougherty MD R3) A/P Assessment and Plan 66-year-old female with known pancreatic cancer presented with metastatic disease and intractable pain. Oncology, Dr. Vasquez consult. Hospice consult. Discharge Planning Home with home hospice today (Dunia Dougherty MD R3) Attending Attestation Patient seen and examined. Case reviewed and discussed. Agree with plan of care as discussed with me and documented in the resident note. (Wendy Cancino MD) Problem List: (1) Pancreatic cancer Status: Acute Plan: Known pancreatic cancer, now with metastases to the liver Oncology consult, Dr. Vasquez (will be away until next Saturday 04/28) Hospice consultation. Patient will allow hospice to come check on her weekly. -Pain control: Patient tolerating by mouth pain medications, will be discharged to home on same regimen. Unclear if celiac block was effective as patient had 8 /10 pain this morning. She will follow-up with Dr. Vasquez and go home with hospice. -Continue Creon 5 mg By mouth 3 times a day after meals -Ativan 0.25 mg by mouth 3 times a day when necessary anxiety (2) Anemia Status: Acute Plan: Status post 1 unit red blood cells Hemoglobin adequately up trended Follow-up with Dr. Vasquez (3) Intractable abdominal pain Status: Resolved Plan: Pain regimen as above (4) Diabetes Status: Chronic Plan: Patient normally takes Humalog sliding scale insulin and 6 units of Lantus daily. Continue home regimen at discharge and follow-up with PCP. (5) Hyponatremia Status: Resolved Plan: Likely secondary to dehydration. Resolved after IV hydration. (6) Hypothyroid Status: Chronic Plan: Continue home medication. (Dnuia Dougherty MD R3) Problem Qualifiers (1) Anemia: Qualified Code: D64.9 - Anemia, unspecified type (2) Diabetes: Qualified Code: E11.8 - Type 2 diabetes mellitus with complication, with long- term current use of insulin Dunia Dougherty MD R3 Apr 28, 2017 10:30 Wendy Cancino MD Apr 28, 2017 16:17
--- NOTE | 2017-04-28 10:33 | HHI.DS ---
Discharge Summary Admission Date Apr 23, 2017 at 16:29 Discharge Date: Apr 28, 2017 Admitting Diagnosis Intractable abdominal pain (1) Pancreatic cancer Diagnosis: Principal Plan: Known pancreatic cancer, now with metastases to the liver Oncology consult, Dr. Vasquez (will be away until next Saturday 04/28) Hospice consultation. Patient will allow hospice to come check on her weekly. -Pain control: Patient tolerating by mouth pain medications, will be discharged to home on same regimen. Unclear if celiac block was effective as patient had 8 /10 pain this morning. She will follow-up with Dr. Vasquez and go home with hospice. -Continue Creon 5 mg By mouth 3 times a day after meals -Ativan 0.25 mg by mouth 3 times a day when necessary anxiety (2) Anemia Diagnosis: Secondary Plan: Status post 1 unit red blood cells Hemoglobin adequately up trended Follow-up with Dr. Vasquez (3) Intractable abdominal pain Diagnosis: Principal Plan: Pain regimen as above (4) Diabetes Diagnosis: Principal Plan: Patient normally takes Humalog sliding scale insulin and 6 units of Lantus daily. Continue home regimen at discharge and follow-up with PCP. (5) Hyponatremia Diagnosis: Principal Plan: Likely secondary to dehydration. Resolved after IV hydration. (6) Hypothyroid Diagnosis: Secondary Plan: Continue home medication. Consultants Hematology oncology Procedures Celiac axis nerve block on 04/27 Brief History History of present illness: 66-year-old female with a history of locally advanced pancreatic cancer found February 2016. Known to Dr. Vasquez. From information obtained from Dr. Vasquez note in January 2017, patient has clinical T3 N1 M0. She received chemotherapy and the CA-19-9 fell to 107 and she had a normal PET scan. She had a Whipple procedure 08/2016 and was found to have residual cancer with a 2.5 cm pancreatic poorly differentiated adenocarcinoma and 3 positive lymph nodes. Her plan was to be treated with radiation therapy with oral xeloda following the surgery. However, she never recovered well enough to do this. She had problems with diabetes and needed to follow with an data entry analyst. The patient came in today because "she could not take the pain anymore." She says the last few days have been "hell." The pain is constant 10 out of 10 in the center of her belly, radiates to her back up and down. She is nauseous but is not vomiting. She has no appetite. She has both diarrhea and constipation. At the time of my interview, she received 1 mg of Dilaudid and her pain is relatively gone. The ED spoke with Dr. Vasquez and he plans to see the patient today. CBC/BMP: 04/27/17 0453 04/26/17 0401 Significant Findings Laboratory Tests Test 04/25/17 04/26/17 04/27/17 18:05 04:01 04:53 Hemoglobin 9.3 GM/DL 8.9 GM/DL 8.7 GM/DL (11.6-15.3) (11.6-15.3) (11.6-15.3) Hematocrit 29.0 % 27.9 % 26.4 % (35.0-46.0) (35.0-46.0) (35.0-46.0) Red Blood Count 3.27 MIL/MM3 (4.00-5.30) Mean Corpuscular Hemoglobin 31.8 % Concent (32.0-36.0) Carbon Dioxide Level 32.3 MEQ/L (21.0-32.0) Creatinine 0.46 MG/DL (0.50-1.00) Random Glucose 127 MG/DL (74-106) Calcium Level 7.9 MG/DL (8.5-10.1) Total Protein 5.5 GM/DL (6.4-8.2) Albumin 2.4 GM/DL (3.4-5.0) Imaging Last Impressions Spine CT 04/27/17 0000 Signed Impressions: Service Date/Time: Thursday, April 27, 2017 15:27 - CONCLUSION: Uncomplicated neurolysis of the celiac plexus as above. Nilesh Alexandra MD Abdomen/Pelvis CT 04/23/17 1242 Signed Impressions: Service Date/Time: April 15:10 - CONCLUSION: Moderate amount of ascites, new. Superficial soft tissue edema also noted. Diffuse apparent colonic wall thickening, likely related to incomplete distention of the colon as areas that are air-filled show no wall thickening. New 2.5 x 1.5 cm lesion in the left lobe of the liver, indeterminate. This finding is likely accessible to CT-guided percutaneous needle biopsy. Akshat Mcdermott MD PE at Discharge GENERAL: NAD. Pleasant. HEENT: NCAT, EOMI, no scleral icterus, no conjunctival injection. MMM. NECK: Supple, no meningeal signs. CV: RRR, S1 S2. 1/6 systolic murmur. CHEST/PULM: CTAB, no crackles, no wheezes ABD/GI: +BS, soft, nondistended. No rebound, no guarding. EXT: 2+ DP pulses. No calf tenderness, no edema. NEURO: Awake, alert. Normal muscle tone. SKIN: No rashes, no jaundice. PSYCH: Mood and affect are appropriate. Speech fluent. Hospital Course Patient admitted for intractable abdominal pain which was well-controlled on extended release morphine and IV Dilaudid. Hematology/oncology was consulted and recommended celiac axis nerve block which the patient had done on 04/27 with intermediate results. Patient's pain regimen was transitioned to by mouth (see below for details) and she was well-controlled with by mouth Dilaudid for breakthrough pain. She met with hospice and understands the severity and degree of her illness. She will be discharged to home with hospice in stable condition with her pain controlled with by mouth medications. She will follow- up with Dr. Vasquez and with her PCP for her diabetes and hypothyroidism. Pt Condition on Discharge: Stable Discharge Disposition: Hospice/ Home Discharge Instructions DIET: Follow Instructions for: As Tolerated, No Restrictions Activities you can perform: Regular-No Restrictions Follow up Referrals: Oncology - 1 Week PCP Follow-up - 1 Week New Medications: Alprazolam (Xanax) 0.25 Mg Tab 0.25 MG PO TID PRN ANXIETY #90 TAB Hydromorphone (Dilaudid) 2 Mg Tab 2 MG PO Q4H Take 2 mg for pain 1-7, take 4 mg for pain 8-10 PRN PAIN SCALE 1 TO 7 #120 TAB Morphine ER (Morphine ER) 30 Mg Tab 30 MG PO Q8H #90 TAB Sennosides-Docusate Sodium (Senna Plus 8.6-50 mg) 1 Tab Tab 2 TAB PO BID #120 TAB Continued Medications: Aspirin DR (Aspir-81) 81 Mg Tabdr 81 MG PO DAILY Docusate Sodium (Dok) 100 Mg Cap 100 MG PO TID consti Days 30 CAP Insulin Human Isophane-Regular 70-30 Inj (Novolin 70-30 Inj) 1,000 Unit/10 Ml Vial 3 UNITS SQ BID@08,17 DM Days 30 INJECTION Levothyroxine (Synthroid) 100 Mcg Tab 100 MCG PO DAILY Thyroid #30 Ref 0 TAB Pancrelipase (Creon) 12,000-38,000-60,000 Units Cap 5 CAP PO TIDPC Digestive Aid Ref 0 CAP Discontinued Medications: Hydrocodone-Acetaminophen (Hydrocodone-Acetaminophen) 5-325 mg Tab 1 TAB PO Q8HR PRN PAIN SCALE 4 TO 10 #15 TAB Morphine ER (Morphine ER) 30 Mg Tab 30 MG PO Q8H Pain Management Ref 0 TAB Dunia Dougherty MD R3 Apr 28, 2017 10:33
[2017-04-28 12:00] VITALS: BP 168/83; PULSE 76; RESP 18; TEMP 98.1; O2SAT 95
== END 2017-04-28 12:38 | disposition hospice, home (50) | DRG 948 ==
LOC: NEPC 12:04 → NEDA 16:29 → N07B 18:16
PROVIDERS: ADMIT Family Medicine; ATTEND Family Medicine
PROC: 30233N1 Transfusion of Nonautologous Red Blood Cells into Peripheral Vein, Percutaneous Approach (ICD-10-PCS; principal; 2017-04-24)
PROC: 3E0T3CZ (ICD-10-PCS; 2017-04-27)
DX: G89.3 Neoplasm related pain (acute) (chronic) (principal); C78.7 Secondary malignant neoplasm of liver and intrahepatic bile duct; E11.8 Type 2 diabetes mellitus with unspecified complications; R18.8 Other ascites; C25.9 Malignant neoplasm of pancreas, unspecified; E87.1 Hypo-osmolality and hyponatremia; E86.0 Dehydration; I10 Essential (primary) hypertension; K21.9 Gastro-esophageal reflux disease without esophagitis; K59.00 Constipation, unspecified; F32.9 Major depressive disorder, single episode, unspecified; E03.9 Hypothyroidism, unspecified; E78.5 Hyperlipidemia, unspecified; D64.9 Anemia, unspecified; F41.9 Anxiety disorder, unspecified; E78.00 Pure hypercholesterolemia, unspecified; R19.7 Diarrhea, unspecified; I25.10 Atherosclerotic heart disease of native coronary artery without angina pectoris; Z66 Do not resuscitate; Z92.3 Personal history of irradiation; I25.2 Old myocardial infarction; Z72.0 Tobacco use; Z80.0 Family history of malignant neoplasm of digestive organs; Z80.9 Family history of malignant neoplasm, unspecified; Z82.49 Family history of ischemic heart disease and other diseases of the circulatory system; Z79.4 Long term (current) use of insulin; Z95.5 Presence of coronary angioplasty implant and graft; Z92.21 Personal history of antineoplastic chemotherapy
CPT/HCPCS: 36430; 64635; 74177; 76937; 77012; 80048; 80053; 81001; 82272; 82948; 83690; 85014; 85018; 85025; 85610; 85730; 86301; 86850; 86900; 86901; 86920; 96361; 96374; 96375; 99152; J1170; J1644; J2250; J2405; J2795; J3010; J7030; J7050; P9016; Q9967